=== PATIENT | male | born 1940 | race Caucasian/White ===

== ENCOUNTER 2019-08-19 16:13 | Inpatient (IN) | payer MEDICARE, MEDICAID ==
[2019-08-19 16:50] LABS: Bilirubin Negative (Negative); Blood, Urine Negative (Negative); Clarity Clear (Clear); Glucose, Urine (Dipstick) Normal (Negative); Leukocyte Negative Leu/uL (Negative); Nitrite Negative (Negative); Protein, Urine (Dipstick) Negative (Neg-Trace); Urobilinogen Normal mg/dL (Less than 2)
[2019-08-19] MEDS ORDERED: Cefepime 2 GM VIAL ONE ×3 (16:52→16:57)
[2019-08-19 17:00] LABS: #Lymphocytes 1.8 thou/uL (1.20-3.40); #Monocytes 0.9 thou/uL (0.11-0.59); %Basophils 0.2 % (0.0-1.0); %Eosinophils 0.2 % (0.0-10.0); %Lymphocytes 20.8 % (21.0-51.0); %Monocytes 10.6 % (0.0-10.0); %Neutrophils 68.2 % (42.0-75.0); Hemoglobin 16.1 g/dL (14.0-18.0); Mean Corpuscular HGB CONC 32.9 g/dL (32.0-36.0); Mean Corpuscular Hemoglobin 32.2 pg (27.0-31.0); Mean Corpuscular Volume 97.8 fL (78.0-98.0); Mean Platelet Volume 9.2 fL (7.4-10.4); Platelet Count 174 thou/uL (130-400); RBC Distribution Width 13.1 % (11.5-14.5); White Blood Cell (WBC) Count 8.8 thou/uL (4.8-10.8)
[2019-08-19 17:19] LABS: ALT (SGPT) 9 U/L (8-55); AST (SGOT) 14 U/L (5-34); Albumin 4.2 g/dL (3.4-4.8); Alkaline Phosphatase 77 U/L (40-110); Anion Gap 16 mmol/L (10-20); BUN (Urea Nitrogen) 17 mg/dL (8.4-25.7); Bilirubin, Total 0.5 mg/dL (0.2-1.2); Calc. Creatinine Clearance 0 mL/min (70-130); Carbon Dioxide 28 mmol/L (23-31); Chloride 100 mmol/L (98-107); Estimated GFR-MDRD 52; Glucose 142 mg/dL (83-110); Potassium 3.5 mmol/L (3.5-5.1); Protein, Total 7.2 g/dL (5.8-8.1); Sodium 140 mmol/L (136-145)
--- NOTE | 2019-08-19 17:27 | RAD ---
Chest one view HISTORY: Dyspnea. Fever. FINDINGS: No comparison. Cardiac silhouette is magnified and enlarged. Pulmonary vasculature is engor ged with mild patchy bibasilar infiltrates. Mediastinum is midline with aortic calcification. No lobar consolidation or evidence of pneumothorax. compliance monitor leads overlie the chest. IMPRESSION: Cardiomegaly with mild pulmonary vascular congestion. Consider CHF. Atherosclerosis.
[2019-08-19 17:43] LABS: CKMB 1.9 ng/mL (0-6.6)
[2019-08-19] MEDS ORDERED: methylPREDNISolone Sod Succ/PF 125 MG/2 ML VIAL ONE (17:52)
[2019-08-19 18:32] LABS: Analyzer IN Cardio ER; Base Excess (BEa) -0.4 mEq/L (-2.0 to +3.0); CO2 Tension 38.9 mmHg (35.0-45.0); Carboxyhemoglobin (COHb) 0.9 gm% (0.0-3.0); Hemoglobin (Hb) 15.2 g/dL (14.0-18.0); Potassium - ABG Lab 3.52 mmol/L (3.70-5.30); pH, Arterial 7.41 (7.35-7.45)
[2019-08-19 18:45] LABS: ALV-art Gradient 92.915 (0-20); O2 Tension (PaO2) 58.1 mmHg (> 70.0); Puncture Site LRA
[2019-08-19] MEDS ORDERED: Furosemide 40 MG/4 ML VIAL ONE (19:22)
[2019-08-19 21:14] LABS: Lactic Acid 2.8 mmol/L (0.5-2.2)
[2019-08-19] MEDS ORDERED: Bacteriostatic Water 30 ML VIAL FS PRN (23:40)
[2019-08-19] MEDS ORDERED: Sodium Chloride 0.9% (PF) 10 ML VIAL FS PRN (23:42)
[2019-08-19 23:52] VITALS: BMI 33.1
[2019-08-20] MEDS: Cefepime 1 GM in Sodium Chloride 0.9% 100 ML IVPB SCH ×3 (00:09→17:49)
[2019-08-20] MEDS: methylPREDNISolone Sod Succ 40 MG VIAL IVP SCH ×3 (00:18→13:13)
[2019-08-20 02:05] LABS: #Lymphocytes 0.4 thou/uL (1.20-3.40); #Monocytes 0.1 thou/uL (0.11-0.59); #Neutrophils 6.1 thou/uL (1.40-6.50); %Basophils 0.2 % (0.0-1.0); %Eosinophils 0.1 % (0.0-10.0); %Lymphocytes 6.6 % (21.0-51.0); %Monocytes 2.1 % (0.0-10.0); Hemoglobin 15.2 g/dL (14.0-18.0); Mean Corpuscular HGB CONC 33.2 g/dL (32.0-36.0); Mean Corpuscular Hemoglobin 32.6 pg (27.0-31.0); Mean Corpuscular Volume 98.1 fL (78.0-98.0); Mean Platelet Volume 9.5 fL (7.4-10.4); Platelet Count 171 thou/uL (130-400); RBC Distribution Width 13.2 % (11.5-14.5); Red Blood Cell (RBC) Count 4.66 mill/uL (4.70-6.10); White Blood Cell (WBC) Count 6.7 thou/uL (4.8-10.8)
[2019-08-20 02:27] LABS: Lactic Acid 2.8 mmol/L (0.5-2.2)
[2019-08-20 02:28] LABS: Troponin I 0.132 ng/mL (< 0.028)
[2019-08-20 02:32] LABS: ALT (SGPT) 11 U/L (8-55); AST (SGOT) 17 U/L (5-34); Albumin 3.8 g/dL (3.4-4.8); Alkaline Phosphatase 62 U/L (40-110); Anion Gap 16 mmol/L (10-20); BUN (Urea Nitrogen) 19 mg/dL (8.4-25.7); Bilirubin, Total 0.5 mg/dL (0.2-1.2); Calc. Creatinine Clearance 69 mL/min (70-130); Calcium 8.5 mg/dL (7.8-10.44); Carbon Dioxide 25 mmol/L (23-31); Chloride 101 mmol/L (98-107); Estimated GFR-MDRD 58; Glucose 221 mg/dL (83-110); Potassium 4.2 mmol/L (3.5-5.1); Protein, Total 6.8 g/dL (5.8-8.1); Sodium 138 mmol/L (136-145)
--- NOTE | 2019-08-20 05:07 | HP ---
CHIEF COMPLAINT: Shortness of breath and hypoxia. HISTORY OF PRESENT ILLNESS: Mr. Beard is a 79-year-old male with past medical history of aortic stenosis, cardiomyopathy, diastolic heart failure, COPD versus bronchitis, who uses nebulizer treatments every day and oxygen as well, has wheezing all the time, was complaining of some coughing and shortness of breath. The patient was in respiratory distress and hypoxic at the [facility] and also had fever. The patient also was getting confused. He did not have any chest pain, nausea, vomiting, or headache. So, EMS was called because of these symptoms. EMS found the patient with fever, also with wheezing, was given Tylenol and DuoNeb treatments. In the ER, the patient was evaluated and found to be in respiratory failure, also in atrial fibrillation with RVR. The patient was also found to have influenza A positive. So, the patient received a dose of Solu-Medrol, cefepime, Cardizem, and vancomycin. He did not get Tamiflu yet. He did not get DuoNebs also. The patient is also placed on BiPAP for respiratory distress. PAST MEDICAL HISTORY: 1. Hypertension. 2. Cardiomyopathy. 3. History of diastolic heart failure. 4. History of COPD versus bronchitis. 5. Aortic stenosis. 6. Dementia with behavioral disturbance. 7. Blindness, right eye. PAST SURGICAL HISTORY: Nothing significant. CURRENT MEDICATIONS: The patient is on, 1. DuoNebs q.i.d. 2. Lasix 40 mg daily. 3. Breo Ellipta 100/25 one inhaler daily. 4. KCl 10 mEq daily. 5. Depakote 125 mg three times daily. 6. Aricept 10 mg daily. 7. Melatonin 5 mg at bedtime. 8. Vitamin B12 daily. 9. Mucinex daily. ALLERGIES: NKDA. FAMILY HISTORY: Nothing contributory. SOCIAL HISTORY: He lives in the [facility]. No history of alcohol intake. REVIEW OF SYSTEMS: CARDIOVASCULAR: Has no chest pain. Has shortness of breath. RESPIRATORY: Has cough and fever. GASTROINTESTINAL: No nausea, vomiting, or abdominal symptoms. CENTRAL NERVOUS SYSTEM: No headache. No dizziness. PHYSICAL EXAMINATION: GENERAL: The patient is alert, awake, oriented x3. VITAL SIGNS: Temperature is 99.1, pulse 110, respirations 32, and blood pressure 120/60. HEENT: Head is normocephalic, atraumatic. Pupils are equal and reactive to light. Nasopharynx is pale and dry. NECK: Supple. No JVD. LUNGS: Expiratory wheeze present bilaterally. No crackles. HEART: S1 and S2 regular. ABDOMEN: Soft. No distention. No tenderness. No organomegaly. Bowel sounds present. RECTAL: Deferred. CENTRAL NERVOUS SYSTEM: No focal deficit. EXTREMITIES: 1+ edema. LABORATORY DATA: CBC shows WBC 8.8, hemoglobin 16, hematocrit 48, and platelets 174. Metabolic panel; sodium 140, potassium 3.5, chloride 100, CO2 of 28, urea nitrogen 17, creatinine 1.3, and glucose 142. Lactic acid 2.7. Troponin I 0.08. BNP is not done. ABG showed pH 7.4, pCO2 of 38, PO2 of 58, saturation 90%. Urinalysis negative. IMAGING DATA: Chest x-ray shows pulmonary vascular congestion. EKG shows atrial fibrillation with rapid ventricular rate with heart rate of 105. ASSESSMENT: 1. Acute respiratory failure. 2. Diastolic heart failure. 3. Asthmatic bronchitis versus chronic obstructive pulmonary disease. 4. Influenza A. 5. Atrial fibrillation with rapid ventricular rate. 6. History of cardiomyopathy. 7. Hypertension. 8. Dementia with behavioral problems. PLAN: 1. Admit to IMCU. 2. Condition; critical. Prognosis; guarded. 3. Diet; cardiac. 4. Hep-Lock. 5. DuoNebs 1 unit q.i.d. 6. Solu-Medrol 20 mg IVP q.6 hours and Lasix 40 mg IVP q.a.m. 7. KCl 20 mEq daily. 8. Cefepime 1 g IV piggyback q.8 hours, Tamiflu 75 mg p.o. b.i.d., Protonix 40 mg IV piggyback daily, and Lovenox 40 mg subcu daily. 9. We will obtain echocardiogram. 10. Cardiology consult. 11. CBC, CMP, and lactic acid level in the morning. Troponin I q.6 hours x2. We will continue [facility] medications. We will maintain BiPAP. Job ID: [id number]
[2019-08-20] MEDS: Mometasone/Formoterol 120 PUFF INHALER INH SCH ×3 (08:29→19:12)
[2019-08-20] MEDS ORDERED: FLU VACC TS2019-20(65YR UP)/PF 180 MCG/0.5 ML SYRINGE IM ONE (09:00)
[2019-08-20] MEDS ORDERED: Prevnar 13-Val Conj/PF 0.5 ML SYRINGE IM ONE (09:00)
[2019-08-20] MEDS: Potassium Chloride 20 MEQ TAB PO SCH (10:15)
[2019-08-20] MEDS: Enoxaparin Sodium 40 MG/0.4 ML SYRINGE SC SCH (10:16)
[2019-08-20] MEDS: Oseltamivir 75 MG CAP PO SCH ×2 (10:17→22:11)
[2019-08-20] MEDS: Furosemide 40 MG/4 ML VIAL SLOW IVP SCH (10:17)
[2019-08-20] MEDS: guaiFENesin ER 600 MG TAB PO SCH ×2 (10:17→22:11)
[2019-08-20] MEDS: Pantoprazole 40 MG VIAL IVP SCH (10:18)
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
[2019-08-20] MEDS ORDERED: Divalproex Sodium 125 mg Sprinkle Capsule PO SCH (19:45)
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
[2019-08-21] MEDS: Cefepime 1 GM in Sodium Chloride 0.9% 100 ML IVPB SCH ×3 (02:17→19:35)
[2019-08-21] MEDS ORDERED: Acetaminophen 325 MG TAB PO PRN (05:55)
[2019-08-21] MEDS: Mometasone/Formoterol 120 PUFF INHALER INH SCH ×2 (07:59→18:46)
[2019-08-21] MEDS: Potassium Chloride 20 MEQ TAB PO SCH (09:40)
[2019-08-21] MEDS: Oseltamivir 75 MG CAP PO SCH ×2 (09:40→20:44)
[2019-08-21] MEDS: Enoxaparin Sodium 40 MG/0.4 ML SYRINGE SC SCH (09:40)
[2019-08-21] MEDS: guaiFENesin ER 600 MG TAB PO SCH ×2 (09:40→20:44)
[2019-08-21] MEDS: predniSONE 20 MG TAB PO SCH (09:40)
[2019-08-21] MEDS: Furosemide 40 MG/4 ML VIAL SLOW IVP SCH (09:40)
[2019-08-21] MEDS: Pantoprazole 40 MG VIAL IVP SCH (09:41)
[2019-08-21] MEDS ORDERED: Artificial Tears 18 DROP/0.9 ML EA EYE PRN (11:09)
[2019-08-21] MEDS ORDERED: Ketotifen Fumarate 0.025% Ophth Soln 5 ml Bottle EA EYE PRN (11:12)
[2019-08-21] MEDS: Divalproex Sodium 125 mg Sprinkle Capsule PO SCH ×2 (13:20→20:44)
--- NOTE | 2019-08-21 16:19 | PRG ---
DATE OF SERVICE: 08/21/2019 SERVICE: Pulmonary Medicine. INTERVAL HISTORY: The patient is doing outstanding from respiratory standpoint. Breathing comfortably. No complaints of chest discomfort, fevers, cough, nausea, vomiting, or diarrhea. Otherwise, he indicates he is breathing comfortably and has no chest discomfort. He can tell he is in the hospital today. His mentation is cleared significantly. He is no longer being inappropriate with female staff members. PHYSICAL EXAMINATION: VITAL SIGNS: Afebrile currently with a T-max of 100.7. Pulse 87, blood pressure 174/106, respirations 28, and saturation 94%, currently on room air. GENERAL: The patient is awake and alert, in no apparent distress. LUNGS: Wonderful air entry with no prolonged expiratory phase or wheezing present. HEART: Normal rate. Regular. ABDOMEN: Soft, nontender, and nondistended. Bowel sounds are positive. MUSCULOSKELETAL: No cyanosis or clubbing. There is trace pitting in the bilateral lower extremities. NEUROLOGIC: Grossly nonfocal. DISCUSSION AND PLAN: Echocardiogram demonstrates normal ejection fraction with a mildly dilated left atrium, moderate mitral regurgitation, and moderate to severe aortic stenosis. ASSESSMENT: 1. Acute on chronic hypoxic respiratory failure. 2. Chronic obstructive pulmonary disease with acute exacerbation secondary to influenza A. 3. Acute on chronic diastolic heart failure. 4. Mitral regurgitation, moderate with aortic stenosis, severe. 5. Dementia. DISCUSSION AND PLAN: The patient has returned to normal sinus rhythm. He can be transitioned out of the IMCU. At this point, he has no further requirements for inpatient Pulmonary or Critical Care opinion. Steroids and Tamiflu can be interrupted after total duration of 5 days. If the patient has significant deterioration in respiratory status, please give me a phone call. Job ID: [id number]
[2019-08-21] MEDS: Melatonin 3 MG TAB PO SCH (20:44)
[2019-08-21] MEDS ORDERED: guaiFENesin ER 600 MG TAB PO SCH (21:00)
[2019-08-22] MEDS: Cefepime 1 GM in Sodium Chloride 0.9% 100 ML IVPB SCH ×3 (02:10→16:12)
[2019-08-22 08:27] LABS: Phosphorus 2.4 mg/dL (2.3-4.7)
[2019-08-22 08:29] LABS: Anion Gap 9 mmol/L (10-20); BUN (Urea Nitrogen) 28 mg/dL (8.4-25.7); Calc. Creatinine Clearance 95 mL/min (70-130); Calcium 8.6 mg/dL (7.8-10.44); Carbon Dioxide 31 mmol/L (23-31); Chloride 101 mmol/L (98-107); Estimated GFR-MDRD 84; Glucose 126 mg/dL (83-110); Magnesium 2.1 mg/dL (1.6-2.6); Potassium 4.3 mmol/L (3.5-5.1); Sodium 137 mmol/L (136-145)
[2019-08-22] MEDS: guaiFENesin ER 600 MG TAB PO SCH ×2 (08:51→21:03)
[2019-08-22] MEDS: Furosemide 40 MG/4 ML VIAL SLOW IVP SCH (08:51)
[2019-08-22] MEDS: predniSONE 20 MG TAB PO SCH (08:52)
[2019-08-22] MEDS: Cyanocobalamin (Vitamin B-12) 1,000 MCG TAB PO SCH (08:52)
[2019-08-22] MEDS: Aspirin Chewable 81 MG TAB PO SCH (08:52)
[2019-08-22] MEDS: Donepezil HCl 10 MG TAB PO SCH (08:52)
[2019-08-22] MEDS: Divalproex Sodium 125 mg Sprinkle Capsule PO SCH ×3 (08:52→21:03)
[2019-08-22] MEDS: Oseltamivir 75 MG CAP PO SCH ×2 (08:52→21:03)
[2019-08-22] MEDS: Potassium Chloride 20 MEQ TAB PO SCH (08:53)
[2019-08-22] MEDS: Mometasone/Formoterol 120 PUFF INHALER INH SCH ×2 (08:57→19:22)
[2019-08-22] MEDS: Enoxaparin Sodium 40 MG/0.4 ML SYRINGE SC SCH (10:42)
[2019-08-22] MEDS: Acetaminophen 500 MG TAB PO PRN (16:11)
[2019-08-22] MEDS: Melatonin 3 MG TAB PO SCH (21:03)
[2019-08-23] MEDS: Cefepime 1 GM in Sodium Chloride 0.9% 100 ML IVPB SCH ×3 (00:12→16:09)
[2019-08-23] MEDS: Mometasone/Formoterol 120 PUFF INHALER INH SCH ×2 (08:38→20:28)
[2019-08-23] MEDS: Enoxaparin Sodium 40 MG/0.4 ML SYRINGE SC SCH (10:05)
[2019-08-23] MEDS: Potassium Chloride 20 MEQ TAB PO SCH (10:06)
[2019-08-23] MEDS: Aspirin Chewable 81 MG TAB PO SCH (10:06)
[2019-08-23] MEDS: Donepezil HCl 10 MG TAB PO SCH (10:06)
[2019-08-23] MEDS: predniSONE 20 MG TAB PO SCH (10:07)
[2019-08-23] MEDS: Divalproex Sodium 125 mg Sprinkle Capsule PO SCH ×3 (10:07→20:57)
[2019-08-23] MEDS: Oseltamivir 75 MG CAP PO SCH ×2 (10:07→20:56)
[2019-08-23] MEDS: guaiFENesin ER 600 MG TAB PO SCH ×2 (10:07→20:56)
[2019-08-23] MEDS: Cyanocobalamin (Vitamin B-12) 1,000 MCG TAB PO SCH (10:07)
[2019-08-23] MEDS: Furosemide 40 MG TAB PO SCH (10:08)
[2019-08-23 12:31] LABS: Phosphorus 2.4 mg/dL (2.3-4.7)
[2019-08-23 12:33] LABS: Anion Gap 11 mmol/L (10-20); BUN (Urea Nitrogen) 25 mg/dL (8.4-25.7); Calc. Creatinine Clearance 88 mL/min (70-130); Carbon Dioxide 34 mmol/L (23-31); Chloride 97 mmol/L (98-107); Estimated GFR-MDRD 76; Glucose 123 mg/dL (83-110); Magnesium 2.1 mg/dL (1.6-2.6); Potassium 4.2 mmol/L (3.5-5.1); Sodium 138 mmol/L (136-145)
--- NOTE | 2019-08-23 14:30 | PQF ---
BARBARA SNYDER VENKAT R MD [id number] [facility]-288 [id number] CLINICAL DOCUMENTATION IMPROVEMENT CLARIFICATION FORM: ICD-10 Updated PLEASE DO AN ADDENDUM TO THE PROGRESS NOTE WITH ANY DOCUMENTATION UPDATES OR ADDITIONS AND CARRY THROUGH TO DC SUMMARY. THANK YOU. DATE: 08/23/2019 ATTN: DR. Kendra HERNÁNDEZ Please exercise your independent, professional judgment in responding to the clarification form. Clinical indicators are provided on the bottom of this form for your review. Please check appropriate box(es): [ ] Sepsis [ ] Severe sepsis with acute organ dysfunction of: (Examples: respiratory failure, encephalopathy, acute kidney failure, other) [ ] Septic Shock [ y] Other diagnosis influenza A and copd exaserbation [ ] Unable to determine In addition, please specify: Present on Admission (POA): [ y] Yes [ ] No [ ] Unable to determine For continuity of documentation, please document condition throughout progress notes and discharge summary. Thank You. CLINICAL INDICATORS - SIGNS / SYMPTOMS / LABS / RESULTS AND LOCATION IN MR ED REPORT 08/19 : PT PRESENTED FROM RESIDENTIAL WITH FEVER OF 102.6, RESP 26- 31, PULSE 113-129, REQUIRING BIPAP TO MAINTAIN O2 SAT AT 95-96%. PT C/O SOB, SLIGHT ALTERED MENTAL STATUS AND FEVER. ED PHYSICIAN FINAL DX: HYPOXIC RESP FAILURE, AFIB W RVR, CAP, INFLUENZA. 08/19 LACTIC ACID 2.7 > 2.8 08/20 LACTIC ACID 2.8 08/19 H& P(THADAREDDY) EMS FOUND THE PT WITH FEVER, ALSO WHEEZING, THE PT WAS FOUND TO HAVE INFLUENZA A POSITIVE. ASSESSMENT: INFLUENZA A RISK: ADVANCED AGE ( 79), RESIDENTIAL RESIDENT, INFLUENZA A (H&P/THADAREDDY) 08/19 TREATMENTS: MAXIPIME IV (08/20-PRESENT) SUPPLEMENTAL OXYGEN ( 08/20- PRESENT) SERIAL LABS ( 08/20- PRESENT) THANK YOU! MEGAN (This form is maintained as a part of the permanent medical record) 2014 [employer], [employer]. All Rights Reserved [email or web address] [email or web address] [phone] [facility]ILITY[facility]assy
[2019-08-23] MEDS: Acetaminophen 500 MG TAB PO PRN (19:21)
[2019-08-23] MEDS: Melatonin 3 MG TAB PO SCH (20:56)
[2019-08-24] MEDS: Cefepime 1 GM in Sodium Chloride 0.9% 100 ML IVPB SCH ×2 (01:17→09:31)
[2019-08-24 04:59] LABS: Phosphorus 2.4 mg/dL (2.3-4.7)
[2019-08-24 05:00] LABS: Anion Gap 11 mmol/L (10-20); BUN (Urea Nitrogen) 23 mg/dL (8.4-25.7); Calc. Creatinine Clearance 104 mL/min (70-130); Calcium 8.6 mg/dL (7.8-10.44); Carbon Dioxide 34 mmol/L (23-31); Chloride 96 mmol/L (98-107); Estimated GFR-MDRD Greater than 90; Glucose 125 mg/dL (83-110); Magnesium 1.9 mg/dL (1.6-2.6); Potassium 4.2 mmol/L (3.5-5.1); Sodium 137 mmol/L (136-145)
[2019-08-24] MEDS: Mometasone/Formoterol 120 PUFF INHALER INH SCH (08:38)
[2019-08-24] MEDS: Enoxaparin Sodium 40 MG/0.4 ML SYRINGE SC SCH (09:31)
[2019-08-24] MEDS: Donepezil HCl 10 MG TAB PO SCH (09:32)
[2019-08-24] MEDS: predniSONE 20 MG TAB PO SCH (09:32)
[2019-08-24] MEDS: Furosemide 40 MG TAB PO SCH (09:32)
[2019-08-24] MEDS: Potassium Chloride 20 MEQ TAB PO SCH (09:32)
[2019-08-24] MEDS: Divalproex Sodium 125 mg Sprinkle Capsule PO SCH ×2 (09:32→16:01)
[2019-08-24] MEDS: Oseltamivir 75 MG CAP PO SCH (09:32)
[2019-08-24] MEDS: Aspirin Chewable 81 MG TAB PO SCH (09:32)
[2019-08-24] MEDS: Cyanocobalamin (Vitamin B-12) 1,000 MCG TAB PO SCH (09:32)
[2019-08-24] MEDS: guaiFENesin ER 600 MG TAB PO SCH (09:32)
[2019-08-24 16:14] VITALS: BP 139/75; TEMP 98.4
--- NOTE | 2019-08-26 08:30 | DIS ---
DATE OF ADMISSION: 08/19/2019 DATE OF DISCHARGE: 08/24/2019 ADMITTING DIAGNOSES: 1. Acute respiratory failure. 2. Diastolic heart failure. 3. Influenza A infection. 4. Chronic obstructive pulmonary disease acute exacerbation. 5. History of cardiomyopathy. 6. Hypertension. 7. Dementia with behavioral problems. FINAL DIAGNOSES: 1. Acute respiratory failure. 2. Influenza A infection. 3. Chronic obstructive pulmonary disease with acute exacerbation, improved. 4. Diastolic heart failure. 5. Cardiomyopathy by history. 6. Hypertension. 7. Dementia with behavioral problems. BRIEF SUMMARY OF HOSPITAL COURSE: Mr. Beard is a 79-year-old male, admitted with respiratory distress, fever. The patient was found to be influenza A positive and he was in respiratory failure and also chest wheezing, with history of COPD exacerbation and also history of congestive heart failure. The patient was on EPAP and BiPAP, monitored in IMCU. The patient was seen by Pulmonary, Dr. Montaño, suggested to continue with BiPAP as well as neb treatments and Solu-Medrol and Tamiflu. The patient was also seen by Cardiology in view of his heart failure. The patient had an echo done also which showed [id number] aortic stenosis. Dr. Anderson suggested gentle diuresis and they felt he is not a candidate for any interventional procedure regarding aortic stenosis, his oxygen saturation improved. He was taken off BiPAP, kept on nasal cannula. There was an episode of agitation secondary to dementia and continuous chest wheezing, was kept on neb treatments, Solu-Medrol, and Lasix and transferred to telemetry where he was closely monitored. His shortness of breath gradually improved. Chest wheezing also improved. In view of improvement, the patient is being discharged back to [facility]. At the time of discharge, he was stable, vital signs stable, lungs clear, abdomen soft and nontender and bowel sounds present. DISCHARGE MEDICATIONS: Include 1. Vitamin B12 1 tablet daily. 2. Prednisone in tapering doses. 3. KCl 10 mEq daily. 4. Mucinex 600 b.i.d. 5. Melatonin daily at bedtime day. 6. DuoNeb q.4 hours. 7. Aricept 10 mg daily. 8. Aspirin 81 mg daily. 9. colace 100 mg daily 10. Lasix 40 mg daily. 11. Depakote 125 t.i.d. 12. Breo Ellipta one puff daily. 13. Augmentin b.i.d. for a week. 14. Tylenol p.r.n. The patient will complete his Tamiflu dose. Job ID: [id number] MTDD
--- NOTE | 2019-08-27 08:56 | PQF ---
BARBARA SNYDER VENKAT R MD [id number] [facility]-288 [id number] CLINICAL DOCUMENTATION CLARIFICATION FORM: POST DISCHARGE Addendum to original discharge summary date: ____ Late entry note date: __ DATE: 08/27/2019 ATTN:ELVIRA HERNÁNDEZ MD Please exercise your independent, professional judgment in responding to the clarification form. Clinical indicators are provided on the bottom of this form for your review Please check appropriate box(s): Diagnosis Occasioning theadmission : [ y ] Acute Respiratory Failure [ y ] Influenza A infection [ ] Acute on chronic diastolic heart failure [ ] Other diagnosis [ ] Unable to determine For continuity of documentation, please document condition throughout progress notes and discharge summary. Thank You. CLINICAL INDICATORS - SIGNS / SYMPTOMS / LABS - Hypoxic respiratory failure- ED report, 08/19, Afshin Denson MD - Influenza positive with infiltrates-ED report, 08/19, Afshin Denson MD - respiratory distress and hypoxic, SOB and Hypoxia- H&P, 08/19, ELVIRA HERNÁNDEZ MD - Chest X-ray shows pulmonary vascular congestion-H&P, 08/19, ELVIRA HERNÁNDEZ MD - BNP: 215.0H- Laboratory, 08/20 RISK FACTORS - COPD exacerbation secondary to influenza A- Consultation-08/21, Justin Zuñiga MD - Acute respiratory failure-DS, 08/24, ELVIRA HERNÁNDEZ MD - Diastolic heart failure- DS, 08/24, ELVIRA HERNÁNDEZ MD TREATMENTS: - Furosemide.IV- AUG, 08/19 - Vancomycin.IV- AUG, 08/19 - BiPAP - H&P, 08/19, ELVIRA HERNÁNDEZ MD - DuoNeb- H&P, 08/19, ELVIRA HERNÁNDEZ MD (This form is maintained as a part of the permanent medical record) 2014 [employer], [place]. All Rights Reserved [employer] ViewerJaime [email or web address] HARESH
== END 2019-08-24 16:14 | DRG 193 ==
LOC: ERS 16:13 → ERHOLD 19:29 → IMCU/EMU 23:37 → 2NO 08-21 19:06
PROVIDERS: ADMIT Internal Medicine; ATTEND Internal Medicine
DX: J10.1 Influenza due to other identified influenza virus with other respiratory manifestations (principal); J96.21 Acute and chronic respiratory failure with hypoxia; G93.41 Metabolic encephalopathy; I50.33 Acute on chronic diastolic (congestive) heart failure; J44.1 Chronic obstructive pulmonary disease with (acute) exacerbation; F03.91 Unspecified dementia, unspecified severity, with behavioral disturbance; I42.9 Cardiomyopathy, unspecified; I11.0 Hypertensive heart disease with heart failure; H54.61 Unqualified visual loss, right eye, normal vision left eye; G47.00 Insomnia, unspecified; R45.1 Restlessness and agitation; I48.91 Unspecified atrial fibrillation; I35.0 Nonrheumatic aortic (valve) stenosis; Z99.81 Dependence on supplemental oxygen
CPT/HCPCS: 36415; 51701; 71045; 80048; 80053; 81003; 82553; 82805; 83605; 83735; 83880; 84100; 84484; 85025; 87040; 87804; 90471; 90670; 93005; 93306; 94640; 94660; 96361; 96365; 96367; 96375; 99292; C9113; G0009; J0692; J1650; J1940; J2920; J2930; J3370; J3490; J7512; J7620

== ENCOUNTER 2020-05-07 19:02 | Inpatient (IN) | payer MEDICARE, MEDICAID ==
[~2020-05-07 19:02] MED LIST: Iopamidol-370 76% 500 ML 1 ML ONE
[2020-05-07] MEDS ORDERED: Cefepime 2 GM VIAL ONE (19:31)
[2020-05-07] MEDS ORDERED: methylPREDNISolone Sod Succ/PF 125 MG/2 ML VIAL ONE (19:31)
[2020-05-07] MEDS ORDERED: Albuterol 200 PUFF (6.7GM INHALER) ONE (19:37)
[2020-05-07 19:59] LABS: #Basophils 0.1 thou/uL (0.0-0.2); #Eosinphils 0.2 thou/uL (0.0-0.7); #Lymphocytes 2.4 thou/uL (1.20-3.40); #Monocytes 0.6 thou/uL (0.11-0.59); #Neutrophils 4.3 thou/uL (1.40-6.50); %Basophils 0.8 % (0.0-1.0); %Eosinophils 2.6 % (0.0-10.0); %Lymphocytes 32.2 % (21.0-51.0); %Monocytes 7.8 % (0.0-10.0); %Neutrophils 56.7 % (42.0-75.0); Hemoglobin 15.9 g/dL (14.0-18.0); Mean Corpuscular HGB CONC 32.4 g/dL (32.0-36.0); Mean Corpuscular Hemoglobin 31.8 pg (27.0-31.0); Mean Corpuscular Volume 98.3 fL (78.0-98.0); Mean Platelet Volume 8.8 fL (7.4-10.4); Platelet Count 171 thou/uL (130-400); RBC Distribution Width 13.6 % (11.5-14.5); Red Blood Cell (RBC) Count 4.99 mill/uL (4.70-6.10); White Blood Cell (WBC) Count 7.6 thou/uL (4.8-10.8)
[2020-05-07 20:20] LABS: ALT (SGPT) Less than 7 U/L (8-55); AST (SGOT) 13 U/L (5-34); Albumin 3.8 g/dL (3.4-4.8); Alkaline Phosphatase 78 U/L (40-110); Anion Gap 12 mmol/L (10-20); BUN (Urea Nitrogen) 22 mg/dL (8.4-25.7); Bilirubin, Total 0.5 mg/dL (0.2-1.2); Calc. Creatinine Clearance 0 mL/min (70-130); Calcium 8.7 mg/dL (7.8-10.44); Carbon Dioxide 34 mmol/L (23-31); Chloride 99 mmol/L (98-107); Estimated GFR-MDRD 58; Globulin 2.7 g/dL (2.4-3.5); Glucose 130 mg/dL (83-110); Lipase 14 U/L (8-78); Magnesium 1.9 mg/dL (1.6-2.6); Potassium 4.1 mmol/L (3.5-5.1); Protein, Total 6.5 g/dL (5.8-8.1); Sodium 141 mmol/L (136-145)
--- NOTE | 2020-05-07 20:33 | RAD ---
Chest one view HISTORY: Dyspnea. COMPARISON: 08/19/2019. FINDINGS: Cardiac silhouette is magnified and enlarged. Pulmonary vasculature slightly engorged with mild patchy bibasilar infiltrates similar in appearance to the prior study. Mediastinum is midline. No lobar consolidation or evidence of pneumothorax. IMPRESSION : Cardiomegaly, stable. Appearance of mild chronic CHF.
[2020-05-07] MEDS ORDERED: Furosemide 20 MG/2 ML VIAL ONE (21:03)
[2020-05-07] MEDS ORDERED: Furosemide 40 MG/4 ML VIAL ONE (21:03)
[2020-05-07 21:05] LABS: Bilirubin Negative (Negative); Blood, Urine Negative (Negative); Clarity Clear (Clear); Glucose, Urine (Dipstick) Normal (Negative); Ketone, Urine Negative (Negative); Leukocyte Negative Leu/uL (Negative); Nitrite Negative (Negative); Protein, Urine (Dipstick) 20 mg/dL (Neg-Trace); Specific Gravity, Urine 1.026 (1.002-1.036); pH, Urine 7.5 (5.0-9.0)
--- NOTE | 2020-05-07 21:50 | CT ---
CT arteriogram chest with IV contrast and 3-D imaging HISTORY: Dyspnea. Chest pain. FINDINGS: There is good contrast opacification pulmonary arteries and thoracic aorta. Nonenlarged, no nspecific lymph nodes throughout the mediastinum. Prominent calcification of the coronary arteries. Within the posterior aspect of the right lower lobe is a focal masslike area of soft tissue nodular d ensity measuring up to 2.2 cm x 1.8 cm x 1.5 cm greatest diameters. It is just beyond an area of central atelectasis involving the anterior basilar segment of the right lower lobe. Additional tiny n odule is present at the right posterior lung base. No lobar consolidation or evidence of pneumothorax. Mild diffuse groundglass opacity involves the right upper lobe and left lower lobe without focal cons olidation. Cause is not evident. IMPRESSION : No evidence of pulmonary embolus. Right lower lobe nodule 2.2 cm. Chronic appearing scarring/abnormality at the right lower lobe also h as the appearance of chronic inflammation. Please consider pulmonary medicine evaluation for potential bronchoscopy and PET. Atherosclerosis.
[2020-05-07 23:48] LABS: Troponin I 0.024 ng/mL (< 0.028)
--- NOTE | 2020-05-07 23:55 | PDOC.HHP ---
Hospitalist HPI - History of Present Illness History of Present Illness: ADMISSION DATE: 05/07/2020 TIME OF ASSESSMENT: 2315 PRIMARY CARE PHYSICIAN: None at this time, previous patient of Dr. Mercado CHIEF COMPLAINT: Shortness of breath HPI: The patient is a 79-year-old male past medical history significant for cardiomyopathy and CHF who is a resident at [facility]. Nursing staff at the halfway called EMS stating that the patient's O2 sats were in the 80s. Upon arrival the patient sats were in the mid 90s and he has some lower extremity edema. He was wheezy upon arrival per EMS. Upon interview patient states he wants to go back home and does not want to be admitted. Discussed with patient his clinical findings and plan of care and he was able to calm down. He denies any fevers, chills, nausea, vomiting, diarrhea. He does acknowledge that he has some increased swelling to his right leg. Patient states he is normally not oxygen dependent. ED COURSE: Today in the ER they completed a chest x-ray, chest and thorax CTA, lab work, and Covid swab he was administered furosemide 60 mg IV, Rocephin 2 g IV piggyback, methylprednisone 125 mg IV, Proventil HFA 2 inhalations. VITAL SIGNS TueMay 07, 2020 19:18 DEBBIE Yu Jordan BP: 155/86, MAP: 109, Pulse: 79, Resp: 24, Temp: 98.5 (Oral), Pain: 0, O2 sat: 92 on (Room Air), Time: 05/07/2020 19:18. VITAL SIGNS TueMay 07, 2020 19:56 DEBBIE Yu Jordan BP: 150/86, MAP: 107, Pulse: 82, Resp: 29, Pain: 0, O2 sat: 94 on (2L Oxygen), Time: 05/07/2020 19:56. VITAL SIGNS TueMay 07, 2020 20:44 DEBBIE Yu Jordan BP: 138/86, MAP: 93, Pulse: 76, Resp: 27, Pain: 0, O2 sat: 96 on (3L Oxygen), Time: 05/07/2020 20:44. PAST MEDICAL HISTORY: CHF, aortic valve stenosis, dementia, blindness right eye, COPD, insomnia, cardiomyopathy PAST SURGICAL HISTORY: Unknown SOCIAL HISTORY: Patient lives at [facility]. He denies alcohol, drugs, smoking. FAMILY HISTORY: Unknown due to patient's mentation ALLERGIES: No known drug allergies CURRENT MEDICATIONS: Depakote 125 mg 3 times a day Furosemide 40 mg daily Melatonin 5 mg once at night Vitamin B12 1000 mcg Donepezil 10 mg daily Children's aspirin 81 mg daily Prozac 10 mg daily Risperidone 0.5 mg daily Namenda 10 mg daily - Exam General Appearance: NAD, awake alert Neck: supple Heart: RRR, no murmur, no gallops, no rubs Respiratory: CTAB, no wheezes, no rales, no ronchi Gastrointestinal: soft, non-tender, non-distended, normal bowel sounds Extremities: 2+ LE edema (Right greater than left) Psychiatric: oriented to person Hospitalist Results - Labs Result Diagrams: 05/13/20 03:58 05/11/20 08:58 Lab results: WBC 7.6 thou/uL (4.8-10.8) 05/07/20 19:46 Hgb 15.9 g/dL (14.0-18.0) 05/07/20 19:46 Hct 49.1 % (42.0-52.0) 05/07/20 19:46 MCV 98.3 fL (78.0-98.0) H 05/07/20 19:46 Plt Count 171 thou/uL (130-400) 05/07/20 19:46 Neutrophils % 56.7 % (42.0-75.0) 05/07/20 19:46 Sodium 141 mmol/L (136-145) 05/07/20 19:46 Potassium 4.1 mmol/L (3.5-5.1) 05/07/20 19:46 Chloride 99 mmol/L (98-107) 05/07/20 19:46 Carbon Dioxide 34 mmol/L (23-31) H 05/07/20 19:46 BUN 22 mg/dL (8.4-25.7) 05/07/20 19:46 Creatinine 1.20 mg/dL (0.7-1.3) 05/07/20 19:46 Glucose 130 mg/dL (83-110) H 05/07/20 19:46 Lactic Acid 1.2 mmol/L (0.5-2.2) 05/07/20 19:46 Calcium 8.7 mg/dL (7.8-10.44) 05/07/20 19:46 Total Bilirubin 0.5 mg/dL (0.2-1.2) 05/07/20 19:46 AST 13 U/L (5-34) 05/07/20 19:46 ALT Less than 7 U/L (8-55) L 05/07/20 19:46 Alkaline Phosphatase 78 U/L (40-110) 05/07/20 19:46 Troponin I 0.024 ng/mL (< 0.028) 05/07/20 23:15 B-Natriuretic Peptide 174.8 pg/mL (0-100) H 05/07/20 19:46 Serum Total Protein 6.5 g/dL (5.8-8.1) 05/07/20 19:46 Albumin 3.8 g/dL (3.4-4.8) 05/07/20 19:46 Lipase 14 U/L (8-78) 05/07/20 19:46 Urine Ketones Negative mg/dL (Negative) 05/07/20 20:30 Urine Blood Negative (Negative) 05/07/20 20:30 Urine Nitrite Negative (Negative) 05/07/20 20:30 Ur Leukocyte Esterase Negative Zakia/uL (Negative) 05/07/20 20:30 - EKG Interpretation EKG: Sinus rhythm with PACs 78 bpm - Radiology Interpretation CT scan - chest Status: report reviewed by me Additional Comment: HISTORY: Dyspnea. Chest pain. FINDINGS: There is good contrast opacification pulmonary arteries and thoracic aorta. Nonenlarged, nonspecific lymph nodes throughout the mediastinum. Prominent calcification of the coronary arteries. Within the posterior aspect of the right lower lobe is a focal masslike area of soft tissue nodular density measuring up to 2.2 cm x 1.8 cm x 1.5 cm greatest diameters. It is just beyond an area of central atelectasis involving the anterior basilar segment of the right lower lobe. Additional tiny nodule is present at the right posterior lung base. No lobar consolidation or evidence of pneumothorax. Mild diffuse groundglass opacity involves the right upper lobe and left lower lobe without focal consolidation. Cause is not evident. IMPRESSION : No evidence of pulmonary embolus. Right lower lobe nodule 2.2 cm. Chronic appearing scarring/abnormality at the right lower lobe also has the appearance of chronic inflammation. Please consider pulmonary medicine evaluation for potential bronchoscopy and PET. Atherosclerosis. Chest x-ray Status: image reviewed by me, report reviewed by me Additional Comment: FINDINGS: Cardiac silhouette is magnified and enlarged. Pulmonary vasculature slightly engorged with mild patchy bibasilar infiltrates similar in appearance to the prior study. Mediastinum is midline. No lobar consolidation or evidence of pneumothorax. IMPRESSION : Cardiomegaly, stable. Appearance of mild chronic CHF. Hospitalist H&P A/P - Plan Plan: Acute on chronic hypoxic respiratory failure IV steroids with IV antibiotics Continue monitor O2 saturation and vital signs Covid swab negative Awaiting blood and urine culture results Chronic obstructive pulmonary disease with acute exacerbation Nebulizer treatments available IV steroids to continue Acute on chronic diastolic heart failure Previous echo in July of this year showed EF 50 to 55% Continue IV Lasix Daily weights Strict intake and outputs Hypertension Monitor vital signs every 4 hours Restart home medications once reconciled Dementia with history of behavioral disturbances Restart home medications once reconciled CODE STATUS: Full Patient unable to name surrogate decision-maker Patient discussed with Dr. Catalan
[2020-05-08] MEDS ORDERED: Dextrose 5% in Water 1,000 ML IV PRN (01:49)
[2020-05-08] MEDS ORDERED: Dextrose 50% Abboject 50 ML SYRINGE SLOW IVP PRN (01:49)
[2020-05-08] MEDS ORDERED: Acetaminophen 325 MG TAB PO PRN (01:49)
[2020-05-08 01:55] LABS: SARS-CoV-2 NAA Rapid Test Not Detected (NotDetected)
[2020-05-08] MEDS ORDERED: HumaLOG 300 UNITS/3 ML VIAL SC PRN ×2 (02:06)
[2020-05-08 02:22] LABS: Troponin I 0.016 ng/mL (< 0.028)
[2020-05-08] MEDS ORDERED: cefTRIAXone\\ROCEPHIN 1 GM in Sodium Chloride 0.9% 100 ML IVPB SCH (02:30)
[2020-05-08] MEDS ORDERED: Azithromycin 500 MG in Sodium Chloride 0.9% 250 ML 250 ML IVPB SCH (03:00)
[2020-05-08 05:18] VITALS: BMI 34.7
[2020-05-08] MEDS: cefTRIAXone\\ROCEPHIN 1 GM in Sodium Chloride 0.9% 100 ML IVPB SCH (05:35)
[2020-05-08] MEDS: Furosemide 40 MG/4 ML VIAL SLOW IVP SCH ×2 (05:36→15:12)
[2020-05-08] MEDS: methylPREDNISolone Sod Succ 40 MG VIAL IVP SCH ×3 (05:36→20:10)
[2020-05-08 05:49] LABS: #Lymphocytes 1.5 thou/uL (1.20-3.40); #Monocytes 0.1 thou/uL (0.11-0.59); #Neutrophils 5.1 thou/uL (1.40-6.50); %Basophils 0.2 % (0.0-1.0); %Eosinophils 0.1 % (0.0-10.0); %Lymphocytes 22.3 % (21.0-51.0); %Monocytes 0.9 % (0.0-10.0); %Neutrophils 76.5 % (42.0-75.0); Hemoglobin 17.5 g/dL (14.0-18.0); Mean Corpuscular HGB CONC 31.6 g/dL (32.0-36.0); Mean Corpuscular Hemoglobin 31.1 pg (27.0-31.0); Mean Corpuscular Volume 98.2 fL (78.0-98.0); Platelet Count 177 thou/uL (130-400); RBC Distribution Width 13.8 % (11.5-14.5); Red Blood Cell (RBC) Count 5.62 mill/uL (4.70-6.10); White Blood Cell (WBC) Count 6.7 thou/uL (4.8-10.8)
[2020-05-08 06:13] LABS: Anion Gap 16 mmol/L (10-20); BUN (Urea Nitrogen) 23 mg/dL (8.4-25.7); Calc. Creatinine Clearance 73 mL/min (70-130); Calcium 9.1 mg/dL (7.8-10.44); Carbon Dioxide 28 mmol/L (23-31); Chloride 99 mmol/L (98-107); Estimated GFR-MDRD 63; Glucose 172 mg/dL (83-110); Magnesium 1.9 mg/dL (1.6-2.6); Potassium 4.2 mmol/L (3.5-5.1); Sodium 139 mmol/L (136-145)
[2020-05-08] MEDS ORDERED: Ketotifen Fumarate 0.025% Ophth Soln 5 ml Bottle EA EYE PRN (07:43)
[2020-05-08] MEDS ORDERED: Artificial Tear Sol 15 ML BOT EA EYE PRN (08:22)
[2020-05-08] MEDS: Azithromycin 250 MG TAB PO SCH (09:15)
[2020-05-08] MEDS: risperiDONE 0.25 MG TAB PO SCH (09:15)
[2020-05-08] MEDS: Aspirin Chewable 81 MG TAB PO SCH (09:15)
[2020-05-08] MEDS: FLUoxetine HCl 10 MG CAP PO SCH (09:15)
[2020-05-08] MEDS: guaiFENesin ER 600 MG TAB PO SCH ×2 (09:16→20:09)
[2020-05-08] MEDS: Divalproex Sodium 125 mg Sprinkle Capsule PO SCH ×2 (09:16→20:09)
[2020-05-08] MEDS: Cyanocobalamin (Vitamin B-12) 1,000 MCG TAB PO SCH (09:16)
[2020-05-08] MEDS: Ipratropium Bromide 2.5 ml Neb NEB SCH ×2 (16:41→19:37)
--- NOTE | 2020-05-08 17:19 | PDOC.HOSPP ---
- Subjective Subjective: confused, trying to take his lines and iv out, required sitter. - Objective Vital Signs & Weight: Vital Signs (12 hours) Temp Pulse Resp BP Pulse Ox 05/08/20 15:08 97.7 F 73 20 138/72 96 05/08/20 12:09 97.3 F L 83 19 108/55 L 93 L 05/08/20 07:17 95 20 146/58 H 94 L Weight Weight 215 lb 1.6 oz I&O: 05/07/20 05/08/20 05/09/20 06:59 06:59 06:59 Intake Total 120 Balance 120 Result Diagrams: 05/08/20 05:31 05/08/20 05:31 Additional Labs: Accuchecks 05/08/20 05/08/20 05/08/20 16:44 10:43 05:44 POC Glucose 185 H 250 H 167 H Radiology Reviewed by me: Yes EKG Reviewed by me: Yes Hospitalist ROS - Medication Medications: Active Medications Generic Name Dose Route Start Last Admin Trade Name Freq PRN Reason Stop Dose Admin Aspirin 81 mg 05/08/20 09:00 05/08/20 09:15 Aspirin Chewable 81 Mg Tab PO 81 mg DAILY GUERRERO Administration Azithromycin 500 mg 05/08/20 09:00 05/08/20 09:15 Azithromycin 250 Mg Tab PO 500 mg DAILY GUERRERO Administration Cyanocobalamin 1,000 mcg 05/08/20 09:00 05/08/20 09:16 Cyanocobalamin (Vitamin B-12) 1,000 Mcg Tab PO 1,000 mcg DAILY GUERRERO Administration Divalproex Sodium 250 mg 05/08/20 09:00 05/08/20 09:16 Divalproex Sodium 125 Mg Sprinkle Capsule PO 250 mg BID GUERRERO Administration Fluoxetine HCl 10 mg 05/08/20 09:00 05/08/20 09:15 Fluoxetine Hcl 10 Mg Cap PO 10 mg DAILY GUERRERO Administration Furosemide 40 mg 05/08/20 06:00 05/08/20 15:12 Furosemide 40 Mg/4 Ml Vial SLOW IVP 40 mg 0600,1400 GUERRERO Administration Guaifenesin 600 mg 05/08/20 09:00 05/08/20 09:16 Guaifenesin Er 600 Mg Tab PO 600 mg BID GUERRERO Administration Ceftriaxone Sodium 1 gm/ 100 mls @ 200 mls/hr 05/08/20 03:00 05/08/20 05:35 Sodium Chloride IVPB 100 mls Q24HR GUERRERO Administration Ipratropium [place] 2.5 ml 05/08/20 13:00 05/08/20 16:41 Ipratropium [place] 2.5 Ml Neb NEB Not Given [id number] GUERRERO Memantine 5 mg 05/08/20 09:00 05/08/20 09:32 Memantine Hcl 5 Mg Tab PO 05/10/20 23:00 5 mg BID GUERRERO Administration Risperidone 0.5 mg 05/08/20 09:00 05/08/20 09:15 Risperidone 0.25 Mg Tab PO 0.5 mg DAILY GUERRERO Administration Sodium Chloride 10 ml 05/08/20 09:00 05/08/20 09:16 Flush - Normal Saline 10 Ml Syringe IVF 10 ml Q12HR GUERRERO Administration - Exam General Appearance: NAD Eye: PERRL ENT: normocephalic atraumatic Neck: supple Heart: RRR Respiratory: rhonchi Gastrointestinal: soft, non-tender Extremities: 1+ LE edema Skin: normal turgor Neurological - other findings: confused Hosp A/P - Plan Acute on chronic hypoxic respiratory failure - likely d/t combination of COPD/CHF exac --COVID negative --taper IV steroids, and cont with empric IV antibiotics --O2 supplement and wean as tolerated. cont nebs Chronic obstructive pulmonary disease with acute exacerbation --cont nebs, empiric IV abx and taper steroid Acute on chronic diastolic heart failure --Previous echo in July of this year showed EF 50 to 55% --Continue IV Lasix --Daily weights --Strict intake and outputs Hypertension --BP stable, cont home meds Dementia with history of behavioral disturbances --resumed home meds. add Seroquel at bedtime
[2020-05-08] MEDS: Mometasone 100 MCG/Formoterol 5 MCG 120 PUFF INHALER INH SCH (19:35)
[2020-05-08] MEDS ORDERED: FLU VACC QS2020-21(65YR UP)/PF 240 MCG/0.7 ML SYRINGE IM ONE (21:00)
[2020-05-08] MEDS ORDERED: Melatonin/Pyridoxine [Melatonin 5 Mg Tablet] PO SCH (21:00)
[2020-05-09] MEDS: Ipratropium Bromide 2.5 ml Neb NEB SCH ×4 (00:55→19:11)
[2020-05-09 04:46] LABS: Band 10 % (5-11); Hemoglobin 15.6 g/dL (14.0-18.0); Lymphocytes 14 % (21-51); MDiff Complete? YES; Mean Corpuscular HGB CONC 33.5 g/dL (32.0-36.0); Mean Corpuscular Volume 95.8 fL (78.0-98.0); Mean Platelet Volume 9.8 fL (7.4-10.4); Metamyelocyte 1 % (0-0); Monocytes 1 % (0-10); Neutrophil 74 % (42-75); Platelet Count 119 thou/uL (130-400); Platelet Morphology Comment Appears Decreased; RBC Distribution Width 13.4 % (11.5-14.5); Red Blood Cell (RBC) Count 4.87 mill/uL (4.70-6.10); White Blood Cell (WBC) Count 10.9 thou/uL (4.8-10.8)
[2020-05-09 05:08] LABS: BUN (Urea Nitrogen) 37 mg/dL (8.4-25.7); Calc. Creatinine Clearance 66 mL/min (70-130); Calcium 8.7 mg/dL (7.8-10.44); Carbon Dioxide 22 mmol/L (23-31); Chloride 98 mmol/L (98-107); Estimated GFR-MDRD 56; Glucose 183 mg/dL (83-110); Potassium 5.1 mmol/L (3.5-5.1); Sodium 135 mmol/L (136-145)
[2020-05-09 05:09] LABS: Anion Gap 20 mmol/L (10-20)
[2020-05-09] MEDS: cefTRIAXone\\ROCEPHIN 1 GM in Sodium Chloride 0.9% 100 ML IVPB SCH (06:05)
[2020-05-09] MEDS: Furosemide 40 MG/4 ML VIAL SLOW IVP SCH ×2 (06:06→14:29)
[2020-05-09] MEDS: Mometasone 100 MCG/Formoterol 5 MCG 120 PUFF INHALER INH SCH ×2 (08:13→19:10)
[2020-05-09] MEDS: Potassium Citrate 10 MEQ TAB PO SCH (08:54)
[2020-05-09] MEDS: Divalproex Sodium 125 mg Sprinkle Capsule PO SCH ×2 (08:54→20:11)
[2020-05-09] MEDS: methylPREDNISolone Sod Succ 40 MG VIAL IVP SCH (08:54)
[2020-05-09] MEDS: Aspirin Chewable 81 MG TAB PO SCH (08:55)
[2020-05-09] MEDS: FLUoxetine HCl 10 MG CAP PO SCH (08:55)
[2020-05-09] MEDS: guaiFENesin ER 600 MG TAB PO SCH ×2 (08:55→20:12)
[2020-05-09] MEDS: risperiDONE 0.25 MG TAB PO SCH (08:55)
[2020-05-09] MEDS: Azithromycin 250 MG TAB PO SCH (08:55)
[2020-05-09] MEDS: Cyanocobalamin (Vitamin B-12) 1,000 MCG TAB PO SCH (08:56)
--- NOTE | 2020-05-09 17:08 | PDOC.HOSPP ---
- Subjective Subjective: Seen examined at bedside. His mental status much better today. We have discontinued sitter, as well as releasing him from soft restraint. He is voiding to improve, his oxygen had weaned down to room air, satting in the mid 90%. - Objective Vital Signs & Weight: Vital Signs (12 hours) Temp Pulse Resp BP Pulse Ox 05/09/20 15:41 98.0 F 82 16 130/62 94 L 05/09/20 13:17 78 16 05/09/20 12:38 97.8 F 60 18 144/65 H 99 05/09/20 08:55 94 L 05/09/20 08:07 52 L 16 05/09/20 07:50 97.4 F L 82 16 138/72 94 L Weight Weight 218 lb 1.6 oz I&O: 05/08/20 05/09/20 05/10/20 06:59 06:59 06:59 Intake Total 120 1200 Output Total 1675 Balance 120 -475 Result Diagrams: 05/09/20 04:11 05/09/20 04:11 Radiology Reviewed by me: Yes EKG Reviewed by me: Yes Hospitalist ROS - Medication Medications: Active Medications Generic Name Dose Route Start Last Admin Trade Name Freq PRN Reason Stop Dose Admin Albuterol/Ipratropium 3 ml 05/08/20 02:55 05/08/20 19:37 Ipratropium/Albuterol Sulfate 3 Ml Neb NEB 3 ml [id number] PRN Administration SOB &/or Wheezing Aspirin 81 mg 05/08/20 09:00 05/09/20 08:55 Aspirin Chewable 81 Mg Tab PO 81 mg DAILY GUERRERO Administration Cyanocobalamin 1,000 mcg 05/08/20 09:00 05/09/20 08:56 Cyanocobalamin (Vitamin B-12) 1,000 Mcg Tab PO 1,000 mcg DAILY GUERRERO Administration Divalproex Sodium 250 mg 05/08/20 09:00 05/09/20 08:54 Divalproex Sodium 125 Mg Sprinkle Capsule PO 250 mg BID GUERRERO Administration Fluoxetine HCl 10 mg 05/08/20 09:00 05/09/20 08:55 Fluoxetine Hcl 10 Mg Cap PO 10 mg DAILY GUERRERO Administration Furosemide 40 mg 05/08/20 06:00 05/09/20 14:29 Furosemide 40 Mg/4 Ml Vial SLOW IVP 40 mg 0600,1400 GUERRERO Administration Guaifenesin 600 mg 05/08/20 09:00 05/09/20 08:55 Guaifenesin Er 600 Mg Tab PO 600 mg BID GUERRERO Administration Ceftriaxone Sodium 1 gm/ 100 mls @ 200 mls/hr 05/08/20 03:00 05/09/20 06:05 Sodium Chloride IVPB 100 mls Q24HR GUERRERO Administration Ipratropium [place] 2.5 ml 05/08/20 13:00 05/09/20 13:17 Ipratropium [place] 2.5 Ml Neb NEB 2.5 ml [id number] GUERRERO Administration Memantine 5 mg 05/08/20 09:00 05/09/20 08:54 Memantine Hcl 5 Mg Tab PO 05/10/20 23:00 5 mg BID GUERRERO Administration Mometasone Furoate/Formoterol Fumar 2 puff 05/08/20 18:30 05/09/20 08:13 Mometasone 100 Mcg/Formoterol 5 Mcg 120 Puff Inhaler INH 2 puff BID-RT GUERRERO Administration Potassium Citrate 10 meq 05/09/20 08:00 05/09/20 08:54 Potassium Citrate 10 Meq Tab PO 10 meq QAM-WM GUERRERO Administration Quetiapine Fumarate 25 mg 05/08/20 21:00 05/08/20 20:09 Quetiapine Fumarate 25 Mg Tab PO 25 mg HS GUERRERO Administration Risperidone 0.5 mg 05/08/20 09:00 05/09/20 08:55 Risperidone 0.25 Mg Tab PO 0.5 mg DAILY GUERRERO Administration Sodium Chloride 10 ml 05/08/20 09:00 05/09/20 08:56 Flush - Normal Saline 10 Ml Syringe IVF 10 ml Q12HR GUERRERO Administration - Exam General Appearance: NAD Eye: PERRL ENT: normocephalic atraumatic Neck: supple Heart: RRR, no murmur Respiratory: CTAB Gastrointestinal: soft Extremities: no cyanosis, no clubbing, 1+ LE edema Skin: normal turgor Neurological: cranial nerve grossly intact Musculoskeletal: generalized weakness Psychiatric: normal affect, normal behavior Hosp A/P - Plan Acute on chronic hypoxic respiratory failure - likely d/t combination of COPD/CHF exac --COVID negative --transition to oral prednisone, and cont with empric IV antibiotics --O2 supplement and wean as tolerated. cont nebs --PT eval Chronic obstructive pulmonary disease with acute exacerbation --cont nebs, empiric IV abx and transition to PO steroid Acute on chronic diastolic heart failure --Previous echo in July of this year showed EF 50 to 55% --Continue IV Lasix --Daily weights --Strict intake and outputs --PT eval Hypertension --BP stable, cont home meds Dementia with history of behavioral disturbances --resumed home meds. add Seroquel at bedtime. Mental status improved, d/c sitter, d/c restraints. Follow clinically --probably back to SNF on Tuesday
[2020-05-09] MEDS: hydrOXYzine Pamoate 25 mg Capsule PO SCH (20:15)
[2020-05-10] MEDS: Ipratropium Bromide 2.5 ml Neb NEB SCH ×4 (00:42→18:47)
[2020-05-10] MEDS: cefTRIAXone\\ROCEPHIN 1 GM in Sodium Chloride 0.9% 100 ML IVPB SCH (05:40)
[2020-05-10] MEDS: Furosemide 40 MG/4 ML VIAL SLOW IVP SCH ×2 (05:41→15:33)
[2020-05-10] MEDS ORDERED: Aspirin Chewable 81 MG TAB PO SCH (09:00)
[2020-05-10] MEDS: guaiFENesin ER 600 MG TAB PO SCH ×2 (09:04→21:53)
[2020-05-10] MEDS: Aspirin Chewable 81 MG TAB PO SCH (09:04)
[2020-05-10] MEDS: FLUoxetine HCl 10 MG CAP PO SCH (09:04)
[2020-05-10] MEDS: Divalproex Sodium 125 mg Sprinkle Capsule PO SCH ×2 (09:04→21:52)
[2020-05-10] MEDS: Donepezil HCl 10 MG TAB PO SCH (09:05)
[2020-05-10] MEDS: risperiDONE 0.25 MG TAB PO SCH (09:05)
[2020-05-10] MEDS: predniSONE 20 MG TAB PO SCH (09:05)
[2020-05-10] MEDS: Cyanocobalamin (Vitamin B-12) 1,000 MCG TAB PO SCH (09:05)
[2020-05-10] MEDS: Potassium Citrate 10 MEQ TAB PO SCH (09:05)
[2020-05-10] MEDS: Mometasone 100 MCG/Formoterol 5 MCG 120 PUFF INHALER INH SCH ×2 (11:21→18:36)
--- NOTE | 2020-05-10 13:01 | PDOC.HOSPP ---
- Subjective Encounter Date: 05/10/20 Encounter Time: 10:40 Subjective: It appears patient is having a good conversation. He keeps asking whether I am coming from [place] [facility]. Lung sounds mild crackles. He is on restraints this morning. - Objective Vital Signs & Weight: Vital Signs (12 hours) Temp Pulse Resp BP Pulse Ox 05/10/20 11:44 98.6 F 78 150/72 H 100 05/10/20 08:00 98.6 F 60 20 142/75 H 94 L 05/10/20 04:00 98.8 F 66 16 134/76 92 L 05/10/20 01:27 90 L Weight Weight 210 lb 11.2 oz I&O: 05/09/20 05/10/20 05/11/20 06:59 06:59 06:59 Intake Total 1200 1138 Output Total 1675 1600 Balance -475 -462 Result Diagrams: 05/09/20 04:11 05/09/20 04:11 Hospitalist ROS - Medication Medications: Active Medications Generic Name Dose Route Start Last Admin Trade Name Freq PRN Reason Stop Dose Admin Albuterol/Ipratropium 3 ml 05/08/20 02:55 05/08/20 19:37 Ipratropium/Albuterol Sulfate 3 Ml Neb NEB 3 ml [id number] PRN Administration SOB &/or Wheezing Aspirin 81 mg 05/08/20 09:00 05/10/20 09:04 Aspirin Chewable 81 Mg Tab PO 81 mg DAILY GUERRERO Administration Cyanocobalamin 1,000 mcg 05/08/20 09:00 05/10/20 09:05 Cyanocobalamin (Vitamin B-12) 1,000 Mcg Tab PO 1,000 mcg DAILY GUERRERO Administration Divalproex Sodium 250 mg 05/08/20 09:00 05/10/20 09:04 Divalproex Sodium 125 Mg Sprinkle Capsule PO 250 mg BID GUERRERO Administration Donepezil HCl 10 mg 05/10/20 09:00 05/10/20 09:05 Donepezil Hcl 10 Mg Tab PO 10 mg DAILY GUERRERO Administration Fluoxetine HCl 10 mg 05/08/20 09:00 05/10/20 09:04 Fluoxetine Hcl 10 Mg Cap PO 10 mg DAILY GUERRERO Administration Furosemide 40 mg 05/08/20 06:00 05/10/20 05:41 Furosemide 40 Mg/4 Ml Vial SLOW IVP 40 mg 0600,1400 GUERRERO Administration Guaifenesin 600 mg 05/08/20 09:00 05/10/20 09:04 Guaifenesin Er 600 Mg Tab PO 600 mg BID GUERRERO Administration Hydroxyzine Pamoate 25 mg 05/09/20 21:00 05/09/20 20:15 Hydroxyzine Pamoate 25 Mg Capsule PO 25 mg BID GUERRERO Administration Ceftriaxone Sodium 1 gm/ 100 mls @ 200 mls/hr 05/08/20 03:00 05/10/20 05:40 Sodium Chloride IVPB 100 mls Q24HR GUERRERO Administration Ipratropium [place] 2.5 ml 05/08/20 13:00 05/10/20 11:24 Ipratropium [place] 2.5 Ml Neb NEB 2.5 ml [id number] GUERRERO Administration Memantine 5 mg 05/08/20 09:00 05/10/20 09:05 Memantine Hcl 5 Mg Tab PO 05/10/20 23:00 5 mg BID GUERRERO Administration Mometasone Furoate/Formoterol Fumar 2 puff 05/08/20 18:30 05/10/20 11:21 Mometasone 100 Mcg/Formoterol 5 Mcg 120 Puff Inhaler INH 2 puff BID-RT GUERRERO Administration Potassium Citrate 10 meq 05/09/20 08:00 05/10/20 09:05 Potassium Citrate 10 Meq Tab PO 10 meq QAM-WM GUERRERO Administration Prednisone 40 mg 05/10/20 08:00 05/10/20 09:05 Prednisone 20 Mg Tab PO 40 mg QAM-WM GUERRERO Administration Quetiapine Fumarate 25 mg 05/08/20 21:00 05/09/20 20:12 Quetiapine Fumarate 25 Mg Tab PO 25 mg HS GUERRERO Administration Risperidone 0.5 mg 05/08/20 09:00 05/10/20 09:05 Risperidone 0.25 Mg Tab PO 0.5 mg DAILY GUERRERO Administration Sodium Chloride 10 ml 05/08/20 09:00 05/09/20 20:15 Flush - Normal Saline 10 Ml Syringe IVF 10 ml Q12HR GUERREOR Administration - Exam General Appearance: NAD, awake alert Eye: PERRL ENT: normocephalic atraumatic Neck: supple Heart: RRR Respiratory: CTAB, normal chest expansion Gastrointestinal: soft, normal bowel sounds Neurological: no new deficit Psychiatric: oriented to person Hosp A/P - Plan Acute on chronic hypoxic respiratory failure - likely d/t combination of COPD/CHF exac --COVID negative --Prednisone --O2 supplement and wean as tolerated. cont nebs --PT eval Chronic obstructive pulmonary disease with acute exacerbation --cont nebs, empiric IV abx and transition to PO steroid -- Acute on chronic diastolic heart failure --Previous echo in July of this year showed EF 50 to 55% --Continue IV Lasix --Daily weights --Strict intake and outputs --PT eval --Negative fluid balance and he lost about 5pounds since admission. Hypertension --BP stable, cont home meds Dementia with history of behavioral disturbances --resumed home meds. add Seroquel at bedtime. - he is on restraints. Follow clinically --probably back to SNF on Tuesday cont with empric IV antibiotics-------> white count is slightly higher today may be due to prednisone. However will check white count and if it is less, than we will change the IV to p.o. antibiotic.
[2020-05-10] MEDS: hydrOXYzine Pamoate 25 mg Capsule PO SCH ×2 (15:33→21:53)
[2020-05-11] MEDS: Ipratropium Bromide 2.5 ml Neb NEB SCH ×4 (00:22→18:31)
[2020-05-11] MEDS: cefTRIAXone\\ROCEPHIN 1 GM in Sodium Chloride 0.9% 100 ML IVPB SCH (02:07)
[2020-05-11] MEDS: Furosemide 40 MG/4 ML VIAL SLOW IVP SCH ×2 (05:15→14:54)
[2020-05-11] MEDS: Mometasone 100 MCG/Formoterol 5 MCG 120 PUFF INHALER INH SCH ×2 (07:31→18:30)
[2020-05-11] MEDS: Aspirin Chewable 81 MG TAB PO SCH (08:40)
[2020-05-11] MEDS: FLUoxetine HCl 10 MG CAP PO SCH (08:40)
[2020-05-11] MEDS: predniSONE 20 MG TAB PO SCH (08:41)
[2020-05-11] MEDS: risperiDONE 0.25 MG TAB PO SCH (08:41)
[2020-05-11] MEDS: Divalproex Sodium 125 mg Sprinkle Capsule PO SCH ×2 (08:41→21:20)
[2020-05-11] MEDS: guaiFENesin ER 600 MG TAB PO SCH ×2 (08:42→21:21)
[2020-05-11] MEDS: Cyanocobalamin (Vitamin B-12) 1,000 MCG TAB PO SCH (08:42)
[2020-05-11] MEDS: Potassium Citrate 10 MEQ TAB PO SCH (08:42)
[2020-05-11] MEDS: Donepezil HCl 10 MG TAB PO SCH (08:42)
[2020-05-11] MEDS: hydrOXYzine Pamoate 25 mg Capsule PO SCH ×2 (08:43→21:21)
[2020-05-11 09:32] LABS: #Basophils 0.1 thou/uL (0.0-0.2); #Lymphocytes 2.8 thou/uL (1.20-3.40); #Monocytes 0.7 thou/uL (0.11-0.59); #Neutrophils 6.4 thou/uL (1.40-6.50); %Basophils 0.8 % (0.0-1.0); %Eosinophils 0.2 % (0.0-10.0); %Lymphocytes 27.7 % (21.0-51.0); %Monocytes 7.2 % (0.0-10.0); Hemoglobin 16.4 g/dL (14.0-18.0); Mean Corpuscular HGB CONC 32.2 g/dL (32.0-36.0); Mean Corpuscular Hemoglobin 31.2 pg (27.0-31.0); Mean Corpuscular Volume 96.7 fL (78.0-98.0); Mean Platelet Volume 9.1 fL (7.4-10.4); Platelet Count 190 thou/uL (130-400); RBC Distribution Width 13.4 % (11.5-14.5); Red Blood Cell (RBC) Count 5.25 mill/uL (4.70-6.10); White Blood Cell (WBC) Count 10.1 thou/uL (4.8-10.8)
[2020-05-11 09:53] LABS: Anion Gap 14 mmol/L (10-20); BUN (Urea Nitrogen) 34 mg/dL (8.4-25.7); Calc. Creatinine Clearance 78 mL/min (70-130); Calcium 8.8 mg/dL (7.8-10.44); Carbon Dioxide 37 mmol/L (23-31); Chloride 93 mmol/L (98-107); Estimated GFR-MDRD 71; Glucose 125 mg/dL (83-110); Potassium 3.5 mmol/L (3.5-5.1); Sodium 140 mmol/L (136-145)
--- NOTE | 2020-05-11 13:51 | PDOC.HOSPP ---
- Subjective Encounter Date: 05/11/20 Encounter Time: 10:30 Subjective: Patient resting, no acute events noted overnight. He is still on restraints. He appears quite fatigued. - Objective Vital Signs & Weight: Vital Signs (12 hours) Temp Pulse Resp BP Pulse Ox 05/11/20 11:32 97.8 F 69 15 130/64 95 05/11/20 08:50 95 05/11/20 07:57 97.5 F L 58 L 17 126/84 94 L 05/11/20 07:29 71 20 05/11/20 04:02 97.5 F L 61 140/72 94 L Weight Weight 204 lb 14.4 oz I&O: 05/10/20 05/11/20 05/12/20 06:59 06:59 06:59 Intake Total 1138 60 Output Total 1600 2765 Balance -565 -0814 Result Diagrams: 05/11/20 08:58 05/11/20 08:58 Hospitalist ROS - Medication Medications: Active Medications Generic Name Dose Route Start Last Admin Trade Name Freq PRN Reason Stop Dose Admin Albuterol/Ipratropium 3 ml 05/08/20 02:55 05/10/20 18:36 Ipratropium/Albuterol Sulfate 3 Ml Neb NEB 3 ml [id number] PRN Administration SOB &/or Wheezing Aspirin 81 mg 05/08/20 09:00 05/11/20 08:40 Aspirin Chewable 81 Mg Tab PO 81 mg DAILY GUERRERO Administration Cyanocobalamin 1,000 mcg 05/08/20 09:00 05/11/20 08:42 Cyanocobalamin (Vitamin B-12) 1,000 Mcg Tab PO 1,000 mcg DAILY GUERRERO Administration Divalproex Sodium 250 mg 05/08/20 09:00 05/11/20 08:41 Divalproex Sodium 125 Mg Sprinkle Capsule PO 250 mg BID GUERRERO Administration Donepezil HCl 10 mg 05/10/20 09:00 05/11/20 08:42 Donepezil Hcl 10 Mg Tab PO 10 mg DAILY GUERRERO Administration Fluoxetine HCl 10 mg 05/08/20 09:00 05/11/20 08:40 Fluoxetine Hcl 10 Mg Cap PO 10 mg DAILY GUERRERO Administration Furosemide 40 mg 05/08/20 06:00 05/11/20 05:15 Furosemide 40 Mg/4 Ml Vial SLOW IVP 40 mg 0600,1400 GUERRERO Administration Guaifenesin 600 mg 05/08/20 09:00 05/11/20 08:42 Guaifenesin Er 600 Mg Tab PO 600 mg BID GUERRERO Administration Hydroxyzine Pamoate 25 mg 05/09/20 21:00 05/11/20 08:43 Hydroxyzine Pamoate 25 Mg Capsule PO 25 mg BID GUERRERO Administration Ceftriaxone Sodium 1 gm/ 100 mls @ 200 mls/hr 05/08/20 03:00 05/11/20 02:07 Sodium Chloride IVPB 100 mls Q24HR GUERRERO Administration Ipratropium [place] 2.5 ml 05/08/20 13:00 05/11/20 07:29 Ipratropium [place] 2.5 Ml Neb NEB 2.5 ml [id number] GUERRERO Administration Mometasone Furoate/Formoterol Fumar 2 puff 05/08/20 18:30 05/11/20 07:31 Mometasone 100 Mcg/Formoterol 5 Mcg 120 Puff Inhaler INH 2 puff BID-RT GUERRERO Administration Potassium Citrate 10 meq 05/09/20 08:00 05/11/20 08:42 Potassium Citrate 10 Meq Tab PO 10 meq QAM-WM GUERRERO Administration Prednisone 40 mg 05/10/20 08:00 05/11/20 08:41 Prednisone 20 Mg Tab PO 40 mg QAM-WM GUERRERO Administration Quetiapine Fumarate 25 mg 05/08/20 21:00 05/10/20 21:53 Quetiapine Fumarate 25 Mg Tab PO 25 mg HS GUERRERO Administration Risperidone 0.5 mg 05/08/20 09:00 05/11/20 08:41 Risperidone 0.25 Mg Tab PO 0.5 mg DAILY GUERRERO Administration Sodium Chloride 10 ml 05/08/20 09:00 05/11/20 08:43 Flush - Normal Saline 10 Ml Syringe IVF 10 ml Q12HR GUERRERO Administration - Exam General Appearance: ill appearing Eye: PERRL ENT: normocephalic atraumatic Neck: supple Heart: RRR Respiratory: CTAB Gastrointestinal: soft, normal bowel sounds, distended Neurological: no new deficit Psychiatric: somnolent, lethargic Hosp A/P - Plan Acute on chronic hypoxic respiratory failure - likely d/t combination of COPD/CHF exac --COVID negative --Prednisone --O2 supplement and wean as tolerated. cont nebs --PT eval Chronic obstructive pulmonary disease with acute exacerbation --cont nebs, empiric IV abx and transition to PO steroid -- Acute on chronic diastolic heart failure --Previous echo in July of this year showed EF 50 to 55% --Continue IV Lasix --Daily weights --Strict intake and outputs --PT eval --Negative fluid balance and he lost about 5pounds since admission. Hypertension --BP stable, cont home meds Dementia with history of behavioral disturbances --resumed home meds. add Seroquel at bedtime. - he is on restraints. Follow clinically --probably back to SNF on Tuesday cont with empric IV antibiotics-------> white count is slightly higher today may be due to prednisone. However will check white count and if it is less, than we will change the IV to p.o. antibiotic. Switch the antibiotic to p.o. Plan for discharge tomorrow if he is stable.
[2020-05-11] MEDS: Doxycycline 100 MG CAP PO SCH (21:20)
[2020-05-12] MEDS: Ipratropium Bromide 2.5 ml Neb NEB SCH ×5 (01:15→23:30)
[2020-05-12] MEDS: cefTRIAXone\\ROCEPHIN 1 GM in Sodium Chloride 0.9% 100 ML IVPB SCH (03:33)
[2020-05-12 04:36] LABS: #Lymphocytes 2.3 thou/uL (1.20-3.40); #Monocytes 0.6 thou/uL (0.11-0.59); #Neutrophils 6.3 thou/uL (1.40-6.50); %Basophils 0.2 % (0.0-1.0); %Eosinophils 0.2 % (0.0-10.0); %Lymphocytes 24.9 % (21.0-51.0); %Monocytes 6.9 % (0.0-10.0); %Neutrophils 67.8 % (42.0-75.0); Hemoglobin 15.9 g/dL (14.0-18.0); Mean Corpuscular HGB CONC 32.6 g/dL (32.0-36.0); Mean Corpuscular Hemoglobin 31.5 pg (27.0-31.0); Mean Corpuscular Volume 96.5 fL (78.0-98.0); Mean Platelet Volume 9.4 fL (7.4-10.4); Platelet Count 190 thou/uL (130-400); RBC Distribution Width 13.3 % (11.5-14.5); Red Blood Cell (RBC) Count 5.05 mill/uL (4.70-6.10); White Blood Cell (WBC) Count 9.3 thou/uL (4.8-10.8)
[2020-05-12] MEDS: Furosemide 40 MG/4 ML VIAL SLOW IVP SCH ×2 (06:37→15:21)
[2020-05-12] MEDS: Mometasone 100 MCG/Formoterol 5 MCG 120 PUFF INHALER INH SCH ×2 (07:33→18:43)
[2020-05-12] MEDS: FLUoxetine HCl 10 MG CAP PO SCH (09:49)
[2020-05-12] MEDS: predniSONE 20 MG TAB PO SCH (09:49)
[2020-05-12] MEDS: Cyanocobalamin (Vitamin B-12) 1,000 MCG TAB PO SCH (09:49)
[2020-05-12] MEDS: Aspirin Chewable 81 MG TAB PO SCH (09:49)
[2020-05-12] MEDS: Divalproex Sodium 125 mg Sprinkle Capsule PO SCH ×2 (09:49→21:03)
[2020-05-12] MEDS: Doxycycline 100 MG CAP PO SCH ×2 (09:49→21:03)
[2020-05-12] MEDS: risperiDONE 0.25 MG TAB PO SCH (09:50)
[2020-05-12] MEDS: Potassium Citrate 10 MEQ TAB PO SCH (09:50)
[2020-05-12] MEDS: Donepezil HCl 10 MG TAB PO SCH (09:50)
[2020-05-12] MEDS: hydrOXYzine Pamoate 25 mg Capsule PO SCH ×2 (09:50→21:03)
[2020-05-12] MEDS: guaiFENesin ER 600 MG TAB PO SCH ×2 (09:50→21:03)
--- NOTE | 2020-05-12 13:16 | PDOC.HOSPP ---
- Subjective Encounter Date: 05/12/20 Encounter Time: 09:50 Subjective: Patient is resting. No complaints. He is still on soft restraints. - Objective Vital Signs & Weight: Vital Signs (12 hours) Temp Pulse Resp BP Pulse Ox 05/12/20 11:45 98.0 F 62 17 135/61 94 L 05/12/20 07:29 58 L 20 97 05/12/20 07:15 98.7 F 57 L 16 140/64 94 L 05/12/20 03:44 98.8 F 58 L 18 151/73 H 94 L 05/12/20 01:15 62 18 96 Weight Weight 201 lb I&O: 05/11/20 05/12/20 05/13/20 06:59 06:59 06:59 Intake Total 60 1700 Output Total 2725 1200 Balance -2665 500 Result Diagrams: 05/12/20 03:58 05/11/20 08:58 Hospitalist ROS - Medication Medications: Active Medications Generic Name Dose Route Start Last Admin Trade Name Freq PRN Reason Stop Dose Admin Albuterol/Ipratropium 3 ml 05/08/20 02:55 05/10/20 18:36 Ipratropium/Albuterol Sulfate 3 Ml Neb NEB 3 ml [id number] PRN Administration SOB &/or Wheezing Aspirin 81 mg 05/08/20 09:00 05/12/20 09:49 Aspirin Chewable 81 Mg Tab PO 81 mg DAILY GUERRERO Administration Cyanocobalamin 1,000 mcg 05/08/20 09:00 05/12/20 09:49 Cyanocobalamin (Vitamin B-12) 1,000 Mcg Tab PO 1,000 mcg DAILY GUERRERO Administration Divalproex Sodium 250 mg 05/08/20 09:00 05/12/20 09:49 Divalproex Sodium 125 Mg Sprinkle Capsule PO 250 mg BID GUERRERO Administration Donepezil HCl 10 mg 05/10/20 09:00 05/12/20 09:50 Donepezil Hcl 10 Mg Tab PO 10 mg DAILY GUERRERO Administration Doxycycline Hyclate 100 mg 05/11/20 21:00 05/12/20 09:49 Doxycycline 100 Mg Cap PO 100 mg BID GUERRERO Administration Fluoxetine HCl 10 mg 05/08/20 09:00 05/12/20 09:49 Fluoxetine Hcl 10 Mg Cap PO 10 mg DAILY GUERRERO Administration Furosemide 40 mg 05/08/20 06:00 05/12/20 06:37 Furosemide 40 Mg/4 Ml Vial SLOW IVP 40 mg 0600,1400 GUERRERO Administration Guaifenesin 600 mg 05/08/20 09:00 05/12/20 09:50 Guaifenesin Er 600 Mg Tab PO 600 mg BID GUERRERO Administration Hydroxyzine Pamoate 25 mg 05/09/20 21:00 05/12/20 09:50 Hydroxyzine Pamoate 25 Mg Capsule PO 25 mg BID GUERRERO Administration Ipratropium Colon 2.5 ml 05/08/20 13:00 05/12/20 07:29 Ipratropium Colon 2.5 Ml Neb NEB 2.5 ml [id number] GUERRERO Administration Mometasone Furoate/Formoterol Fumar 2 puff 05/08/20 18:30 05/12/20 07:33 Mometasone 100 Mcg/Formoterol 5 Mcg 120 Puff Inhaler INH 2 puff BID-RT GUERRERO Administration Potassium Citrate 10 meq 05/09/20 08:00 05/12/20 09:50 Potassium Citrate 10 Meq Tab PO 10 meq QAM-WM GUERRERO Administration Prednisone 40 mg 05/10/20 08:00 05/12/20 09:49 Prednisone 20 Mg Tab PO 40 mg QAM-WM GUERRERO Administration Quetiapine Fumarate 25 mg 05/08/20 21:00 05/11/20 21:21 Quetiapine Fumarate 25 Mg Tab PO 25 mg HS GUERRERO Administration Risperidone 0.5 mg 05/08/20 09:00 05/12/20 09:50 Risperidone 0.25 Mg Tab PO 0.5 mg DAILY GUERRERO Administration Sodium Chloride 10 ml 05/08/20 09:00 05/12/20 09:51 Flush - Normal Saline 10 Ml Syringe IVF 10 ml Q12HR GUERRERO Administration - Exam General Appearance: awake alert, ill appearing Eye: PERRL ENT: normocephalic atraumatic Neck: supple Heart: RRR Respiratory: CTAB, normal chest expansion Gastrointestinal: soft, normal bowel sounds Neurological: no focal deficits Musculoskeletal: generalized weakness Psychiatric: oriented to person, oriented to place Hosp A/P - Plan Acute on chronic hypoxic respiratory failure - likely d/t combination of COPD/CHF exac --COVID negative --Prednisone --O2 supplement and wean as tolerated. cont nebs --PT eval Chronic obstructive pulmonary disease with acute exacerbation --cont nebs, empiric IV abx and transition to PO steroid -- Acute on chronic diastolic heart failure --Previous echo in July of this year showed EF 50 to 55% --Continue IV Lasix --Daily weights --Strict intake and outputs --PT eval --Negative fluid balance and he lost about 5pounds since admission. Hypertension --BP stable, cont home meds Dementia with history of behavioral disturbances --resumed home meds. add Seroquel at bedtime. - he is on restraints. Follow clinically --probably back to SNF on Tuesday cont with empric IV antibiotics-------> white count is slightly higher today may be due to prednisone. However will check white count and if it is less, than we will change the IV to p.o. antibiotic. Switch the antibiotic to p.o. Plan for discharge tomorrow if he is stable. And for discharge today --he is on p.o. antibiotic he is afebrile and clinically stable to be discharged today.
[2020-05-13 04:29] LABS: #Basophils 0.1 thou/uL (0.0-0.2); #Lymphocytes 2.7 thou/uL (1.20-3.40); #Monocytes 0.7 thou/uL (0.11-0.59); #Neutrophils 7.3 thou/uL (1.40-6.50); %Basophils 0.9 % (0.0-1.0); %Eosinophils 0.4 % (0.0-10.0); %Lymphocytes 24.8 % (21.0-51.0); %Monocytes 6.2 % (0.0-10.0); %Neutrophils 67.7 % (42.0-75.0); Hemoglobin 16.3 g/dL (14.0-18.0); Mean Corpuscular HGB CONC 33.1 g/dL (32.0-36.0); Mean Corpuscular Hemoglobin 31.7 pg (27.0-31.0); Mean Corpuscular Volume 95.6 fL (78.0-98.0); Mean Platelet Volume 9.5 fL (7.4-10.4); Platelet Count 194 thou/uL (130-400); RBC Distribution Width 13.2 % (11.5-14.5); Red Blood Cell (RBC) Count 5.16 mill/uL (4.70-6.10); White Blood Cell (WBC) Count 10.8 thou/uL (4.8-10.8)
[2020-05-13] MEDS: Furosemide 40 MG/4 ML VIAL SLOW IVP SCH (06:25)
[2020-05-13] MEDS: Ipratropium Bromide 2.5 ml Neb NEB SCH ×3 (07:43→19:31)
[2020-05-13] MEDS: Mometasone 100 MCG/Formoterol 5 MCG 120 PUFF INHALER INH SCH ×2 (07:44→19:34)
[2020-05-13] MEDS: Potassium Citrate 10 MEQ TAB PO SCH (09:34)
[2020-05-13] MEDS: Divalproex Sodium 125 mg Sprinkle Capsule PO SCH (09:34)
[2020-05-13] MEDS: predniSONE 20 MG TAB PO SCH (09:34)
[2020-05-13] MEDS: guaiFENesin ER 600 MG TAB PO SCH (09:34)
[2020-05-13] MEDS: Aspirin Chewable 81 MG TAB PO SCH (09:34)
[2020-05-13] MEDS: hydrOXYzine Pamoate 25 mg Capsule PO SCH (09:34)
[2020-05-13] MEDS: Doxycycline 100 MG CAP PO SCH (09:34)
[2020-05-13] MEDS: risperiDONE 0.25 MG TAB PO SCH (09:34)
[2020-05-13] MEDS: FLUoxetine HCl 10 MG CAP PO SCH (09:34)
[2020-05-13] MEDS: Donepezil HCl 10 MG TAB PO SCH (09:34)
[2020-05-13] MEDS: Cyanocobalamin (Vitamin B-12) 1,000 MCG TAB PO SCH (09:34)
--- NOTE | 2020-05-13 13:00 | PDOC.DS.DS ---
Provider - Provider Date of Admission: 05/08/20 16:38 Admitting Provider: Jon Catalan MD Primary Care Physician: OUT OF TOWN Course - Hospital Course Hospital Course: Acute on chronic hypoxic respiratory failure - likely d/t combination of COPD/CHF exac --COVID negative --Prednisone --O2 supplement and wean as tolerated. cont nebs Chronic obstructive pulmonary disease with acute exacerbation --cont nebs, empiric IV abx and transition to PO steroid ---> completed the CT steroid will continue with the p.o. antibiotics upon discharge to the nursing home facility -- Acute on chronic diastolic heart failure --Previous echo in July of this year showed EF 50 to 55% --He was diuresed and followed with electrolyte panels. Hypertension Dementia with history of behavioral disturbances --resumed home meds. add Seroquel at bedtime. Stable to be discharged. He is discharged with doxycycline to complete the course for COPD exacerbation. Discharge time over 30 minutes. Resuscitation Status: 05/08/20 01:49 Resuscitation Status Routine Co-Sign Provider: Resuscitation Status: FULL: Full Resuscitation Discussed with: pt - Labs Lab Results: 05/13/20 03:58 05/11/20 08:58 Abnormal Lab Results - Last 48 hrs 05/12/20 03:58: MCH 31.5 H, Monocytes # 0.6 H 05/13/20 03:58: MCH 31.7 H, Neutrophils # 7.3 H, Monocytes # 0.7 H Microbiology - Entire Visit 05/07/20 19:46 Venous blood - Right Arm Blood Culture - Final NO GROWTH IN 5 DAYS 05/07/20 19:47 Venous blood - Left Hand Blood Culture - Final NO GROWTH IN 5 DAYS 05/07/20 20:30 Urine voided Urine Culture - Final NO GROWTH AT 36 HOURS 05/08/20 14:59 Stool C. difficile GDH Antigen & Toxins - Final 05/07/20 21:06 Nasopharyngeal swab Influenza Types A,B Direct EIA - Final - Physical Exam Vitals: Vital Signs (12 hours) Temp Pulse Resp BP Pulse Ox 05/13/20 08:10 98.0 F 63 16 158/84 H 97 05/13/20 07:43 63 18 97 05/13/20 04:00 98.6 F 59 L 18 123/76 94 L Weight Weight 200 lb Physical Exam: The patient was seen and examined on the day of discharge. Patient is off restraints. He is doing well. Plan to send him to the nursing home facility. Plan - Discharge Medications Prescriptions: Doxycycline [Vibramycin] 100 mg PO Q12HR 7 Days #14 cap Home Medications: Medication Instructions Recorded Confirmed Type Acetaminophen [Tylenol Extra 1,000 mg PO BID PRN 08/20/19 05/08/20 History Strength] Aspirin Chewable [Aspirin Chewable 1 tab PO DAILY 08/20/19 05/08/20 History Tablet] Cyanocobalamin (Vitamin B-12) 1 tab PO DAILY 08/20/19 05/08/20 History [Vitamin B-12] Dextran 70/Hypromellose 1 drop EA EYE Q6HR PRN 08/20/19 05/08/20 History [Artificial Tears Eye Drops] Divalproex Sodium [Depakote 2 capsule PO BID 08/20/19 05/08/20 History Sprinkle] Donepezil HCl [Aricept] 1 tab PO DAILY 08/20/19 05/08/20 History Fluticasone/Vilanterol [Breo 1 puff PO DAILY 08/20/19 05/08/20 History Ellipta] Furosemide [Lasix] 60 mg PO DAILY 08/20/19 05/08/20 History Ipratropium/Albuterol Sulfate 2 puff INH BID 08/20/19 05/08/20 History [DuoNeb] Ipratropium/Albuterol Sulfate 3 ml INH Q4HR PRN 08/20/19 05/08/20 History [Iprat-Albut 0.5-3(2.5) mg/3 ml] Ketotifen Fumarate [Zaditor 0.025% 1 drop EA EYE BID PRN 08/20/19 05/08/20 History Ophth Soln] Melatonin/Pyridoxine [Melatonin 5 5 mg PO HS 08/20/19 05/08/20 History mg Tablet] Potassium Citrate [Potassium 1 tab PO DAILY 08/20/19 05/08/20 History Citrate ER] guaiFENesin [Mucinex] 600 mg PO BID 08/20/19 05/08/20 History guaiFENesin/Dextromethorphan 10 ml PO Q4HR PRN 08/20/19 05/08/20 History [Verónica-Tussin Dm Liquid] FLUoxetine HCl [Prozac] 1 cap PO DAILY 05/08/20 05/08/20 History Memantine HCl [Namenda] 1 tab PO ASDIR 05/08/20 05/08/20 History Memantine HCl [Namenda] 1 tab PO ASDIR 05/08/20 05/08/20 History Umeclidinium [place] [Incruse 1 puff INH DAILY 05/08/20 05/08/20 History Ellipta] hydrOXYzine Pamoate [Vistaril] 1 cap PO BID 05/08/20 05/08/20 History risperiDONE [Risperdal] 1 tab PO DAILY 05/08/20 05/08/20 History Doxycycline [Vibramycin] 100 mg PO Q12HR 7 Days #14 cap 05/13/20 Rx Allergies: No Known Drug Allergies Allergy (Verified 05/08/20 07:52) - Discharge Instructions Activity:: Activity as Tolerated Nourishment:: Regular Diet - Follow up Plan Referrals: [facility]OUT OF [Primary Care Provider] - Disposition: PENITENTIARY FACILITY Quality - Care Measures CORE MEASURES:: N/A
[2020-05-13 19:25] VITALS: BP 143/63; TEMP 98.7
[2020-05-14] MEDS ORDERED: Furosemide 40 MG TAB PO SCH (09:00)
--- NOTE | 2020-05-17 12:15 | EKG ---
Test Reason : Blood Pressure : / mmHG Vent. Rate : 078 BPM Atrial Rate : 078 BPM P-R Int : 152 ms QRS Dur : 096 ms QT Int : 392 ms P-R-T Axes : -03 -25 135 degrees QTc Int : 446 ms Sinus rhythm with Premature atrial complexes with Abberant conduction Left ventricular hypertrophy with repolarization abnormality Cannot rule out Septal infarct , age undetermined Abnormal ECG Confirmed by DEMARIO MASSEY ([id number]), food expeditor PETRA RAY ([id number]) on 05/17/2020 12:14:50 PM Referred By: Confirmed By:DEMARIO MASSEY
== END 2020-05-13 19:40 | DRG 291 ==
LOC: ERS 19:02 → 2NO 05-08 00:49 → OBSVTOIN 05-08 16:38
PROVIDERS: ADMIT Internal Medicine; ATTEND Internal Medicine
DX: I11.0 Hypertensive heart disease with heart failure (principal); J96.21 Acute and chronic respiratory failure with hypoxia; J44.1 Chronic obstructive pulmonary disease with (acute) exacerbation; F03.91 Unspecified dementia, unspecified severity, with behavioral disturbance; Z20.828 Contact with and (suspected) exposure to other viral communicable diseases; I50.33 Acute on chronic diastolic (congestive) heart failure; I42.9 Cardiomyopathy, unspecified; H54.40 Blindness, one eye, unspecified eye; G47.00 Insomnia, unspecified; I35.0 Nonrheumatic aortic (valve) stenosis; Z79.82 Long term (current) use of aspirin; Z79.51 Long term (current) use of inhaled steroids; Z79.899 Other long term (current) drug therapy; Z78.1 Physical restraint status
CPT/HCPCS: 36415; 36416; 71045; 71275; 80048; 80053; 81003; 83605; 83690; 83735; 83880; 84484; 85025; 85379; 87040; 87086; 87324; 87449; 87635; 87804; 93005; 94640; 94664; 96365; 96375; 96376; 97139; G0378; J0692; J0696; J1940; J2920; J2930; J3490; J7512; J7620; Q0177; Q9967; U0002; U0003

== ENCOUNTER 2020-06-08 19:40 | Inpatient (IN) | payer MEDICARE, MEDICAID ==
[2020-06-08] MEDS ORDERED: Cefepime 2 GM VIAL ONE (20:30)
[2020-06-08] MEDS ORDERED: Vancomycin 1 GM/200 ML BAG ONE (20:30)
[2020-06-08] MEDS ORDERED: methylPREDNISolone Sod Succ/PF 125 MG/2 ML VIAL ONE (20:30)
[2020-06-08 20:43] LABS: #Basophils 0.1 thou/uL (0.0-0.2); #Eosinphils 0.3 thou/uL (0.0-0.7); #Lymphocytes 2.3 thou/uL (1.20-3.40); #Monocytes 0.8 thou/uL (0.11-0.59); #Neutrophils 3.7 thou/uL (1.40-6.50); %Basophils 1.3 % (0.0-1.0); %Eosinophils 3.6 % (0.0-10.0); %Monocytes 10.9 % (0.0-10.0); %Neutrophils 52.1 % (42.0-75.0); Hemoglobin 15.8 g/dL (14.0-18.0); Mean Corpuscular Hemoglobin 31.9 pg (27.0-31.0); Mean Corpuscular Volume 96.7 fL (78.0-98.0); Mean Platelet Volume 8.6 fL (7.4-10.4); Platelet Count 179 thou/uL (130-400); RBC Distribution Width 13.5 % (11.5-14.5); Red Blood Cell (RBC) Count 4.97 mill/uL (4.70-6.10)
[2020-06-08] MEDS ORDERED: Furosemide 40 MG/4 ML VIAL ONE (20:43)
[2020-06-08 20:44] LABS: Base Excess-Venous 7.5 mmol/L (-2.0 to 3.0); Bicarbonate (HCO3v) 33.2 mmol/L (22.0-28.0); CO2 Tension (PvCO2) 48.3 mmHg (40.0-50.0); Calcium, Ionized 1.01 mmol/L (1.15-1.33); Chloride 99 mmol/L (98-107); Hemoglobin - Calc 17.6 g/dL (14.0-18.0); Potassium 4.4 mmol/L (3.5-5.1); Sodium 143 mmol/L (138-145); T. Carbon Dioxide 34.7 mmol/L (22.0-28.0); vO2 Saturation-calc 98.9 % (60.0-85.0)
--- NOTE | 2020-06-08 20:48 | RAD ---
PORTABLE CHEST ONE VIEW: Date: 06-08-2020 Time: 8:08 p.m. History: Weakness, difficulty breathing. Comparison: 05-07-2020 FINDINGS: The heart size is enlarged. The lungs are expanded without lobar consolidation, pneumothoraces, hank pulmonary edema or pleural effusions. IMPRESSION: No acute process. POS: JIGNESH
[2020-06-08 21:04] LABS: ALT (SGPT) 11 U/L (8-55); AST (SGOT) 11 U/L (5-34); Albumin 3.6 g/dL (3.4-4.8); Alkaline Phosphatase 87 U/L (40-110); Anion Gap 13 mmol/L (10-20); BUN (Urea Nitrogen) 22 mg/dL (8.4-25.7); Bilirubin, Total 0.4 mg/dL (0.2-1.2); Calc. Creatinine Clearance 0 mL/min (70-130); Calcium 8.7 mg/dL (7.8-10.44); Carbon Dioxide 36 mmol/L (23-31); Chloride 97 mmol/L (98-107); Globulin 2.9 g/dL (2.4-3.5); Glucose 135 mg/dL (83-110); Potassium 4.2 mmol/L (3.5-5.1); Protein, Total 6.5 g/dL (5.8-8.1); Sodium 142 mmol/L (136-145)
[2020-06-08] MEDS ORDERED: Albuterol 200 PUFF (6.7GM INHALER) ONE (21:18)
--- NOTE | 2020-06-08 21:22 | CT ---
CT head noncontrast HISTORY: Altered mental status. FINDINGS: There is no evidence of acute intracranial hemorrhage or infarct. Prominent diffuse cortica l atrophy. There is no mass effect or shift of midline structures. Calcification within the arterial structures of the brain base. Visualized paranasal sinuses remain well aerated. IMPRESSION : Diffuse atrophy. No acute intracranial abnormalities are demonstrated. Atherosclerosis.
[2020-06-08 22:01] LABS: Bilirubin Negative (Negative); Blood, Urine Negative (Negative); Clarity Clear (Clear); Glucose, Urine (Dipstick) Normal (Negative); Ketone, Urine Negative (Negative); Leukocyte Negative Leu/uL (Negative); Nitrite Negative (Negative); Protein, Urine (Dipstick) Negative (Neg-Trace); Urobilinogen Normal mg/dL (Less than 2); pH, Urine 5.5 (5.0-9.0)
[2020-06-08 22:30] LABS: SARS-CoV-2 NAA Rapid Test Not Detected (NotDetected)
[2020-06-08] MEDS ORDERED: Albuterol Sulfate 2.5 mg/3 ml Neb NEB PRN (22:36)
[2020-06-09] MEDS ORDERED: cefTRIAXone\\ROCEPHIN 1 GM VIAL ONE (00:23)
[2020-06-09] MEDS: cefTRIAXone\\ROCEPHIN 1 GM in Sodium Chloride 0.9% 100 ML IVPB SCH (00:28)
--- NOTE | 2020-06-09 01:00 | HP ---
CHIEF COMPLAINT: Shortness of breath. HISTORY OF PRESENT ILLNESS: Mr. Beard is an 80-year-old male with past medical history of congestive heart failure, aortic valve stenosis, dementia, blindness in right eye, COPD, insomnia, anxiety, cardiomyopathy, among others, was brought to the emergency room from nursing facility for altered mental status, wheezing, and shortness of breath. At baseline, the patient is awake, alert, and oriented x3 as per records. Earlier today, the patient was only alert to verbal stimuli, but not oriented. He also reported that he was wheezing and short of breath. The patient was placed on oxygen, typically he is not on oxygen. Per senior living records, the patient has been exposed to individuals with coronavirus, but was tested negative in the past for coronavirus. In the emergency room, the patient was in respiratory distress, wheezing and was given bronchodilators, steroids, and also was given IV Lasix. Some improvement in his respiratory status. The patient is unable to give any further history. The patient is being admitted to hospital for further management. PAST MEDICAL HISTORY: As mentioned above in the history of present illness. PAST SURGICAL HISTORY: Unavailable at the time of this evaluation. FAMILY HISTORY: Reviewed and noncontributory. SOCIAL HISTORY: The patient lives in a long-term facility, otherwise unknown. REVIEW OF SYSTEMS: Unable to obtain due to the patient's underlying medical condition. ALLERGIES: NO KNOWN ALLERGIES. CURRENT MEDICATIONS: See home medication reconciliation form for updated medications. PHYSICAL EXAMINATION: GENERAL: The patient is awake, alert, in moderate distress. VITAL SIGNS: Blood pressure is 122/67, pulse is 88, respiratory rate is 27, temperature is 99.1, and oxygen saturation is 95% on 3 L/minute nasal cannula. HEAD AND NECK: Normocephalic and atraumatic. Neck is supple. CHEST: Coarse bilateral breath sounds. LUNGS: Respirations are unlabored. HEART: S1, S2. Regular. ABDOMEN: Soft, nontender. Bowel sounds present. NEUROLOGIC: Awake, alert. Able to answer simple . LABORATORY DATA: COVID-19 test negative. BNP is 102. CT of the brain, no acute findings. Troponin 0.02. Electrolytes; CO2 is 36, glucose 135, otherwise unremarkable. Lactic acid is 1.2. ABG; pH 7.44, pCO2 is 48, PaO2 is 125. CBC is reviewed, unremarkable. ASSESSMENT: 1. Chronic obstructive pulmonary disease with acute exacerbation. 2. Congestive heart failure with exacerbation? 3. Encephalopathy, acute, metabolic. 4. History of dementia. 5. Cardiomyopathy. PLAN: 1. Admit. 2. Oxygen to keep saturation more than 92%. 3. Continue with bronchodilator scheduled and as needed. 4. IV steroids. 5. Empiric IV antibiotic. 6. IV diuresis. 7. Reconcile home medications. 8. DVT prophylaxis as appropriate. 9. Expected length of stay, 2 midnights or more. Job ID: [id number]
--- NOTE | 2020-06-09 01:05 | PDOC.BPN ---
- Brief Progress Note [id number] HP dictated
[2020-06-09] MEDS ORDERED: methylPREDNISolone Sod Succ 40 MG VIAL ONE ×3 (04:15→15:42)
[2020-06-09] MEDS: Bacteriostatic Water 30 ML VIAL FS PRN ×2 (04:17→09:53)
[2020-06-09] MEDS: methylPREDNISolone Sod Succ 40 MG VIAL IVP SCH ×4 (04:23→21:49)
[2020-06-09 04:41] LABS: #Lymphocytes 1.5 thou/uL (1.20-3.40); #Monocytes 0.1 thou/uL (0.11-0.59); #Neutrophils 3.5 thou/uL (1.40-6.50); %Basophils 0.1 % (0.0-1.0); %Eosinophils 0.3 % (0.0-10.0); %Monocytes 1.9 % (0.0-10.0); %Neutrophils 68.7 % (42.0-75.0); Hemoglobin 15.7 g/dL (14.0-18.0); Mean Corpuscular HGB CONC 32.5 g/dL (32.0-36.0); Mean Corpuscular Hemoglobin 31.4 pg (27.0-31.0); Mean Corpuscular Volume 96.7 fL (78.0-98.0); Mean Platelet Volume 8.8 fL (7.4-10.4); Platelet Count 189 thou/uL (130-400); RBC Distribution Width 13.3 % (11.5-14.5); Red Blood Cell (RBC) Count 4.99 mill/uL (4.70-6.10); White Blood Cell (WBC) Count 5.1 thou/uL (4.8-10.8)
[2020-06-09] MEDS ORDERED: Albuterol Sulfate 2.5 mg/3 ml Neb ONE ×3 (04:46→14:14)
[2020-06-09] MEDS: Albuterol Sulfate 2.5 mg/3 ml Neb NEB SCH ×5 (04:46→19:32)
[2020-06-09 05:08] LABS: ALT (SGPT) 11 U/L (8-55); AST (SGOT) 11 U/L (5-34); Albumin 3.6 g/dL (3.4-4.8); Alkaline Phosphatase 82 U/L (40-110); Anion Gap 15 mmol/L (10-20); BUN (Urea Nitrogen) 25 mg/dL (8.4-25.7); Bilirubin, Total 0.4 mg/dL (0.2-1.2); Calc. Creatinine Clearance 71 mL/min (70-130); Calcium 8.9 mg/dL (7.8-10.44); Carbon Dioxide 34 mmol/L (23-31); Chloride 97 mmol/L (98-107); Glucose 199 mg/dL (83-110); Potassium 4.7 mmol/L (3.5-5.1); Protein, Total 6.6 g/dL (5.8-8.1); Sodium 141 mmol/L (136-145)
[2020-06-09] MEDS: Furosemide 40 MG/4 ML VIAL SLOW IVP SCH ×2 (08:34→15:45)
[2020-06-09] MEDS ORDERED: Furosemide 40 MG/4 ML VIAL ONE ×2 (08:35→15:42)
[2020-06-09] MEDS ORDERED: Aspirin Chewable 81 MG TAB ONE (08:35)
[2020-06-09] MEDS ORDERED: Aspirin Chewable 81 MG TAB PO SCH (09:00)
[2020-06-09] MEDS ORDERED: Enoxaparin Sodium 40 MG/0.4 ML SYRINGE ONE (09:46)
[2020-06-09] MEDS: Enoxaparin Sodium 40 MG/0.4 ML SYRINGE SC SCH (09:53)
--- NOTE | 2020-06-09 19:07 | PDOC.HOSPP ---
- Subjective Encounter Date: 06/09/20 Encounter Time: 19:05 Subjective: Patient seen for follow-up regarding COPD exacerbation. He reports he has shortness of breath with exertion. - Objective Vital Signs & Weight: Vital Signs (12 hours) Pulse Resp BP Pulse Ox 06/09/20 16:45 90 17 143/66 H 95 06/09/20 14:20 86 18 94 L 06/09/20 11:02 79 20 93 L Weight Weight 206 lb 6.4 oz Result Diagrams: 06/09/20 04:25 06/09/20 04:25 Additional Labs: I reviewed patient's labs and MAR EKG Reviewed by me: Yes (Normal sinus rhythm on telemetry) Hospitalist ROS - Review of Systems Respiratory: reports: SOB with excertion. denies: cough, shortness of breath, pleuritic pain, wheezing Cardiovascular: denies: chest pain, palpitations, orthopnea, paroxysmal noc. dyspnea, edema, light headedness - Medication Medications: Active Medications Generic Name Dose Route Start Last Admin Trade Name Freq PRN Reason Stop Dose Admin Albuterol Sulfate 2.5 mg 06/09/20 02:30 06/09/20 14:20 Albuterol Sulfate 2.5 Mg/3 Ml Neb NEB 2.5 mg [id number] GUERRERO Administration Aspirin 81 mg 06/09/20 09:00 06/09/20 08:43 Aspirin Chewable 81 Mg Tab PO 81 mg DAILY GUERRERO Administration Enoxaparin Sodium 40 mg 06/09/20 09:00 06/09/20 09:53 Enoxaparin Sodium 40 Mg/0.4 Ml Syringe SC 40 mg 0900 GUERRERO Administration Furosemide 40 mg 06/09/20 06:00 06/09/20 15:45 Furosemide 40 Mg/4 Ml Vial SLOW IVP 40 mg 0600,1400 GUERRERO Administration Ceftriaxone Sodium 1 gm/ 100 mls @ 200 mls/hr 06/08/20 23:59 06/09/20 00:28 Sodium Chloride IVPB 100 mls Q24HR GUERRERO Administration Doxycycline Hyclate 100 mg/ 100 mls @ 100 mls/hr 06/09/20 09:00 06/09/20 11:21 Sodium Chloride IVPB 100 mls Q12HR GUERRERO Administration Methylprednisolone Sodium Succinate 40 mg 06/09/20 03:00 06/09/20 15:46 Methylprednisolone Sod Succ 40 Mg Vial IVP 40 mg 0300,0900,1500,2100 GUERRERO Administration Sodium Chloride 10 ml 06/09/20 09:00 06/09/20 08:44 Flush - Normal Saline 10 Ml Syringe IVF 10 ml Q12HR GUERRERO Administration Sterile Water 1 ml 06/08/20 23:00 06/09/20 09:53 Bacteriostatic Water 30 Ml Vial FS 1 ml PRN PRN Administration RECONSTITUTION - Exam General Appearance: awake alert General - other findings: Obese ENT: moist mucosa Heart: RRR Respiratory: wheezes Gastrointestinal: soft, non-tender Skin: no rashes Psychiatric: normal affect, normal behavior, oriented to person, oriented to place Hosp A/P (1) COPD exacerbation Code(s): J44.1 - CHRONIC OBSTRUCTIVE PULMONARY DISEASE W (ACUTE) EXACERBATION Status: Acute (2) CHF exacerbation Code(s): I50.9 - HEART FAILURE, UNSPECIFIED Status: Acute (3) Dementia Code(s): F03.90 - UNSPECIFIED DEMENTIA WITHOUT BEHAVIORAL DISTURBANCE Status: Chronic (4) HTN (hypertension) Code(s): I10 - ESSENTIAL (PRIMARY) HYPERTENSION Status: Chronic - Plan continue antibiotics, out of bed/ambulate Continue IV ceftriaxone and doxycycline, continue DuoNebs as needed, continue oxygen as needed. Continue IV Solu-Medrol. Continue IV furosemide 40 mg twice daily for CHF exacerbation. Continue Namenda and Aricept for dementia. Resume home medications, monitor vital signs and titrate antihypertensives as needed.
[2020-06-09] MEDS ORDERED: Artificial Tear Sol 15 ML BOT EA EYE PRN (19:08)
[2020-06-09] MEDS: Melatonin 3 MG TAB PO SCH (21:48)
[2020-06-09] MEDS: guaiFENesin ER 600 MG TAB PO SCH (21:48)
[2020-06-09] MEDS: Divalproex Sodium 125 mg Sprinkle Capsule PO SCH (21:48)
[2020-06-09] MEDS: hydrOXYzine Pamoate 25 mg Capsule PO SCH (21:50)
[2020-06-10] MEDS: cefTRIAXone\\ROCEPHIN 1 GM in Sodium Chloride 0.9% 100 ML IVPB SCH (00:04)
[2020-06-10] MEDS: Albuterol Sulfate 2.5 mg/3 ml Neb NEB SCH ×7 (02:38→23:31)
[2020-06-10] MEDS: methylPREDNISolone Sod Succ 40 MG VIAL IVP SCH ×2 (04:14→10:05)
[2020-06-10 04:53] LABS: #Lymphocytes 0.9 thou/uL (1.20-3.40); #Monocytes 0.3 thou/uL (0.11-0.59); #Neutrophils 5.5 thou/uL (1.40-6.50); %Basophils 0.2 % (0.0-1.0); %Eosinophils 0.1 % (0.0-10.0); %Lymphocytes 14.1 % (21.0-51.0); %Neutrophils 81.7 % (42.0-75.0); Hemoglobin 14.1 g/dL (14.0-18.0); Mean Corpuscular HGB CONC 33.1 g/dL (32.0-36.0); Mean Corpuscular Hemoglobin 31.8 pg (27.0-31.0); Mean Corpuscular Volume 96.1 fL (78.0-98.0); Mean Platelet Volume 8.9 fL (7.4-10.4); Platelet Count 187 thou/uL (130-400); RBC Distribution Width 13.1 % (11.5-14.5); Red Blood Cell (RBC) Count 4.45 mill/uL (4.70-6.10); White Blood Cell (WBC) Count 6.7 thou/uL (4.8-10.8)
[2020-06-10 05:04] LABS: Anion Gap 14 mmol/L (10-20); BUN (Urea Nitrogen) 37 mg/dL (8.4-25.7); Calc. Creatinine Clearance 62 mL/min (70-130); Calcium 8.6 mg/dL (7.8-10.44); Carbon Dioxide 36 mmol/L (23-31); Chloride 92 mmol/L (98-107); Glucose 226 mg/dL (83-110); Potassium 3.7 mmol/L (3.5-5.1); Sodium 138 mmol/L (136-145)
[2020-06-10] MEDS: Furosemide 40 MG/4 ML VIAL SLOW IVP SCH ×2 (06:33→17:27)
[2020-06-10] MEDS: Mometasone 100 MCG/Formoterol 5 MCG 120 PUFF INHALER INH SCH ×2 (07:10→18:54)
[2020-06-10] MEDS ORDERED: FLU VACC QS2020-21(65YR UP)/PF 240 MCG/0.7 ML SYRINGE IM ONE (09:00)
[2020-06-10] MEDS ORDERED: Furosemide 40 MG TAB PO SCH (09:00)
[2020-06-10] MEDS: Cyanocobalamin (Vitamin B-12) 1,000 MCG TAB PO SCH (09:42)
[2020-06-10] MEDS: Divalproex Sodium 125 mg Sprinkle Capsule PO SCH ×2 (09:42→20:25)
[2020-06-10] MEDS: Aspirin Chewable 81 MG TAB PO SCH (09:42)
[2020-06-10] MEDS: Donepezil HCl 10 MG TAB PO SCH (09:44)
[2020-06-10] MEDS: FLUoxetine HCl 10 MG CAP PO SCH (09:44)
[2020-06-10] MEDS: risperiDONE 0.25 MG TAB PO SCH (09:44)
[2020-06-10] MEDS: guaiFENesin ER 600 MG TAB PO SCH ×2 (09:45→20:25)
[2020-06-10] MEDS: Enoxaparin Sodium 40 MG/0.4 ML SYRINGE SC SCH (09:45)
[2020-06-10] MEDS: hydrOXYzine Pamoate 25 mg Capsule PO SCH ×2 (09:45→20:25)
[2020-06-10] MEDS ORDERED: predniSONE 50 MG TAB PO SCH (15:00)
[2020-06-10 15:04] VITALS: BMI 29.8
--- NOTE | 2020-06-10 19:30 | PDOC.HOSPP ---
- Subjective Encounter Date: 06/10/20 Encounter Time: 10:30 Subjective: Patient seen for follow-up regarding COPD exacerbation. He is sleepy but arousable, denies any chest pain or shortness of breath. - Objective Vital Signs & Weight: Vital Signs (12 hours) Temp Pulse Resp BP Pulse Ox 06/10/20 18:52 74 16 98 06/10/20 15:14 98.2 F 87 21 H 104/54 L 94 L 06/10/20 10:10 80 18 06/10/20 08:20 94 L 06/10/20 08:18 98.4 F 75 18 119/58 L 94 L Weight Admit Weight 225 lb 1.471 oz Weight 196 lb 1.6 oz I&O: 06/09/20 06/10/20 06/11/20 06:59 06:59 06:59 Intake Total 716 Balance 716 Result Diagrams: 06/10/20 04:16 06/10/20 04:16 Additional Labs: Labs and MAR reviewed by me EKG Reviewed by me: Yes (Telemetry shows normal sinus rhythm) Hospitalist ROS - Review of Systems Respiratory: denies: cough, shortness of breath, SOB with excertion, pleuritic pain, wheezing Cardiovascular: denies: chest pain, palpitations, orthopnea, paroxysmal noc. dyspnea, edema, light headedness Gastrointestinal: denies: nausea, vomiting, abdominal pain, diarrhea, constipation, melena, hematochezia - Medication Medications: Active Medications Generic Name Dose Route Start Last Admin Trade Name Freq PRN Reason Stop Dose Admin Albuterol Sulfate 2.5 mg 06/09/20 02:30 06/10/20 18:52 Albuterol Sulfate 2.5 Mg/3 Ml Neb NEB 2.5 mg [id number] GUERRERO Administration Aspirin 81 mg 06/10/20 09:00 06/10/20 09:42 Aspirin Chewable 81 Mg Tab PO 81 mg DAILY GUERRERO Administration Cyanocobalamin 1,000 mcg 06/10/20 09:00 06/10/20 09:42 Cyanocobalamin (Vitamin B-12) 1,000 Mcg Tab PO 1,000 mcg DAILY GUERRERO Administration Divalproex Sodium 250 mg 06/09/20 21:00 06/10/20 09:42 Divalproex Sodium 125 Mg Sprinkle Capsule PO 250 mg BID GUERRERO Administration Donepezil HCl 10 mg 06/10/20 09:00 06/10/20 09:44 Donepezil Hcl 10 Mg Tab PO 10 mg DAILY GUERRERO Administration Enoxaparin Sodium 40 mg 06/09/20 09:00 06/10/20 09:45 Enoxaparin Sodium 40 Mg/0.4 Ml Syringe SC 40 mg 0900 GUERRERO Administration Fluoxetine HCl 10 mg 06/10/20 09:00 06/10/20 09:44 Fluoxetine Hcl 10 Mg Cap PO 10 mg DAILY GUERRERO Administration Guaifenesin 600 mg 06/09/20 21:00 06/10/20 09:45 Guaifenesin Er 600 Mg Tab PO 600 mg BID GUERRERO Administration Hydroxyzine Pamoate 25 mg 06/09/20 21:00 06/10/20 09:45 Hydroxyzine Pamoate 25 Mg Capsule PO 25 mg BID GUERRERO Administration Melatonin 6 mg 06/09/20 21:00 06/09/20 21:48 Melatonin 3 Mg Tab PO 6 mg HS GUERRERO Administration Memantine 10 mg 06/09/20 21:00 06/10/20 09:45 Memantine Hcl 10 Mg Tab PO 10 mg BID GUERRERO Administration Mometasone Furoate/Formoterol Fumar 2 puff 06/10/20 06:30 06/10/20 18:54 Mometasone 100 Mcg/Formoterol 5 Mcg 120 Puff Inhaler INH 2 puff BID-RT GUERRERO Administration Risperidone 0.5 mg 06/10/20 09:00 06/10/20 09:44 Risperidone 0.25 Mg Tab PO 0.5 mg DAILY GUERRERO Administration Sodium Chloride 10 ml 06/09/20 09:00 06/10/20 09:49 Flush - Normal Saline 10 Ml Syringe IVF 10 ml Q12HR GUERRERO Administration - Exam Eye: anicteric sclera ENT: moist mucosa Neck: supple Heart: RRR Respiratory: wheezes Gastrointestinal: soft, non-tender Skin: no rashes Musculoskeletal: no muscle wasting Psychiatric: normal affect Hosp A/P (1) COPD exacerbation Code(s): J44.1 - CHRONIC OBSTRUCTIVE PULMONARY DISEASE W (ACUTE) EXACERBATION Status: Acute (2) CHF exacerbation Code(s): I50.9 - HEART FAILURE, UNSPECIFIED Status: Acute (3) Dementia Code(s): F03.90 - UNSPECIFIED DEMENTIA WITHOUT BEHAVIORAL DISTURBANCE Status: Chronic (4) HTN (hypertension) Code(s): I10 - ESSENTIAL (PRIMARY) HYPERTENSION Status: Chronic - Plan Patient improved significantly. Discontinue IV antibiotics, start oral cefdinir. Discontinue IV furosemide, start oral furosemide. Discontinue IV Solu-Medrol, start prednisone. Continue Namenda and Aricept for dementia. Likely discharge in 24 to 48 hours.
[2020-06-10] MEDS: Cefdinir 300 MG CAP PO SCH (20:24)
[2020-06-10] MEDS: Melatonin 3 MG TAB PO SCH (20:25)
[2020-06-11] MEDS: Albuterol Sulfate 2.5 mg/3 ml Neb NEB SCH ×3 (02:01→11:49)
[2020-06-11 04:41] LABS: #Monocytes 0.3 thou/uL (0.11-0.59); #Neutrophils 5.5 thou/uL (1.40-6.50); %Basophils 0.1 % (0.0-1.0); %Lymphocytes 14.1 % (21.0-51.0); %Monocytes 4.8 % (0.0-10.0); Hemoglobin 13.8 g/dL (14.0-18.0); Mean Corpuscular HGB CONC 33.4 g/dL (32.0-36.0); Mean Corpuscular Volume 95.7 fL (78.0-98.0); Mean Platelet Volume 8.9 fL (7.4-10.4); Platelet Count 175 thou/uL (130-400); RBC Distribution Width 13.3 % (11.5-14.5); Red Blood Cell (RBC) Count 4.31 mill/uL (4.70-6.10); White Blood Cell (WBC) Count 6.8 thou/uL (4.8-10.8)
[2020-06-11 05:06] LABS: Anion Gap 14 mmol/L (10-20); BUN (Urea Nitrogen) 38 mg/dL (8.4-25.7); Calc. Creatinine Clearance 73 mL/min (70-130); Calcium 8.4 mg/dL (7.8-10.44); Carbon Dioxide 36 mmol/L (23-31); Chloride 93 mmol/L (98-107); Glucose 218 mg/dL (83-110); Potassium 3.9 mmol/L (3.5-5.1); Sodium 139 mmol/L (136-145)
[2020-06-11] MEDS: Mometasone 100 MCG/Formoterol 5 MCG 120 PUFF INHALER INH SCH (07:03)
[2020-06-11] MEDS ORDERED: predniSONE 50 MG TAB PO SCH (08:00)
[2020-06-11] MEDS: Divalproex Sodium 125 mg Sprinkle Capsule PO SCH (10:06)
[2020-06-11] MEDS: risperiDONE 0.25 MG TAB PO SCH (10:06)
[2020-06-11] MEDS: FLUoxetine HCl 10 MG CAP PO SCH ×2 (10:06→10:07)
[2020-06-11] MEDS: guaiFENesin ER 600 MG TAB PO SCH (10:07)
[2020-06-11] MEDS: Enoxaparin Sodium 40 MG/0.4 ML SYRINGE SC SCH (10:07)
[2020-06-11] MEDS: hydrOXYzine Pamoate 25 mg Capsule PO SCH (10:07)
[2020-06-11] MEDS: Aspirin Chewable 81 MG TAB PO SCH (10:07)
[2020-06-11] MEDS: Donepezil HCl 10 MG TAB PO SCH (10:07)
[2020-06-11] MEDS: Cefdinir 300 MG CAP PO SCH (10:07)
[2020-06-11] MEDS: Furosemide 40 MG TAB PO SCH ×2 (10:07→14:08)
[2020-06-11] MEDS: Cyanocobalamin (Vitamin B-12) 1,000 MCG TAB PO SCH (10:07)
[2020-06-11 11:02] VITALS: BP 143/64; TEMP 98.2
--- NOTE | 2020-06-11 13:24 | PDOC.DS.DS ---
Provider - Provider Date of Admission: 06/08/20 22:16 Date of Discharge: 06/11/20 Admitting Provider: Jose Angel Hebert MD Primary Care Physician: OUT OF TOWN Course - Hospital Course Hospital Course: Discharge diagnosis: 1. Acute on chronic hypoxic respiratory failure 2. COPD exacerbation 3. Acute on chronic diastolic congestive heart failure NYHA class III 4. Influenza test negative 5. COVID-19 PCR test negative Hospital course: Patient is a pleasant 80-year-old gentleman who was admitted to the hospital on June 08, 2020 for acute on chronic hypoxic respiratory failure. He was found to be in CHF exacerbation as well as COPD exacerbation. Improved with intravenous diuretics, oxygen, intravenous steroids, bronchodilators and intravenous antibiotics. He has been stepdown to oral antibiotics and oral steroids. He is being resumed on his oral diuretic as well. He is being discharged back to his long-term care facility in a stable condition. Many thanks for allowing me to participate in your patient's care. Please feel free to contact me with any questions or concerns. Discharge destination: Long-term care facility, from where patient was admitted to the hospital Total amount of time spent coordinating this discharge: 33 minutes - Labs Lab Results: 06/11/20 04:05 06/11/20 04:05 Abnormal Lab Results - Last 48 hrs 06/10/20 04:16: Chloride 92 L, Carbon Dioxide 36 H, BUN 37 H 06/10/20 04:16: RBC 4.45 L, MCH 31.8 H, Neutrophils % 81.7 H, Lymphocytes % 14.1 L, Lymphocytes # 0.9 L 06/11/20 04:05: Chloride 93 L, Carbon Dioxide 36 H, BUN 38 H 06/11/20 04:05: RBC 4.31 L, Hgb 13.8 L, Hct 41.3 L, MCH 32.0 H, Neutrophils % 81.0 H, Lymphocytes % 14.1 L, Lymphocytes # 1.0 L Microbiology - Entire Visit 06/08/20 20:31 Venous blood - Left Hand Blood Culture - Preliminary NO GROWTH AT 48 HOURS 06/08/20 20:31 Venous blood - Left Arm Blood Culture - Preliminary NO GROWTH AT 48 HOURS - Physical Exam Vitals: Vital Signs (12 hours) Temp Pulse Resp BP Pulse Ox 06/11/20 11:01 98.2 F 70 18 143/64 H 97 06/11/20 07:50 98.1 F 60 18 132/56 L 96 06/11/20 03:59 98.1 F 66 20 129/57 L 96 06/11/20 02:01 64 16 96 Weight Admit Weight 225 lb 1.471 oz Weight 198 lb 9.6 oz Physical Exam: The patient was seen and examined on the day of discharge. Patient denies chest pain or shortness of breath. Vital signs are stable. S1 and S2 are heard. Lungs are clear to auscultation bilaterally. Problem - Problem (1) COPD exacerbation Code(s): J44.1 - CHRONIC OBSTRUCTIVE PULMONARY DISEASE W (ACUTE) EXACERBATION Status: Acute (2) CHF exacerbation Code(s): I50.9 - HEART FAILURE, UNSPECIFIED Status: Acute (3) Dementia Code(s): F03.90 - UNSPECIFIED DEMENTIA WITHOUT BEHAVIORAL DISTURBANCE Status: Chronic (4) HTN (hypertension) Code(s): I10 - ESSENTIAL (PRIMARY) HYPERTENSION Status: Chronic Plan - Discharge Medications Prescriptions: predniSONE 20 mg PO ASDIR #16 tab Home Medications: Medication Instructions Recorded Confirmed Type Acetaminophen [Tylenol Extra 1,000 mg PO BID PRN 08/20/19 06/09/20 History Strength] Aspirin Chewable [Aspirin Chewable 1 tab PO DAILY 08/20/19 06/09/20 History Tablet] Cyanocobalamin (Vitamin B-12) 1 tab PO DAILY 08/20/19 06/09/20 History [Vitamin B-12] Dextran 70/Hypromellose 1 drop EA EYE Q6HR PRN 08/20/19 06/09/20 History [Artificial Tears Eye Drops] Divalproex Sodium [Depakote 2 capsule PO BID 08/20/19 06/09/20 History Sprinkle] Donepezil HCl [Aricept] 1 tab PO DAILY 08/20/19 06/09/20 History Fluticasone/Vilanterol [Breo 2 puff PO DAILY 08/20/19 06/09/20 History Ellipta] Furosemide [Lasix] 60 mg PO DAILY 08/20/19 06/09/20 History Melatonin/Pyridoxine [Melatonin 5 5 mg PO HS 08/20/19 06/09/20 History mg Tablet] Potassium Citrate [Potassium 20 meq PO DAILY 08/20/19 06/09/20 History Citrate ER] guaiFENesin [Mucinex] 600 mg PO BID 08/20/19 06/09/20 History FLUoxetine HCl [Prozac] 1 cap PO DAILY 05/08/20 06/09/20 History Memantine HCl [Namenda] 1 tab PO BID 05/08/20 06/09/20 History hydrOXYzine Pamoate [Vistaril] 1 cap PO BID 05/08/20 06/09/20 History risperiDONE [Risperdal] 1 tab PO DAILY 05/08/20 06/09/20 History ALButerol Sulfate [Ventolin Neb] 2.5 mg NEB Q6HR neb 06/11/20 Rx Cefdinir [Omnicef] 300 mg PO BID #14 cap 06/11/20 Rx predniSONE 20 mg PO ASDIR #16 tab 06/11/20 Rx Allergies: No Known Drug Allergies Allergy (Verified 05/08/20 07:52) - Follow up Plan Referrals: [facility] [Outside] (Current resident.) [facility]OUT OF [Primary Care Provider] - 3 Days (Please follow-up with 3 days.) Disposition: HOME Quality - Care Measures CORE MEASURES:: HF - Stroke/TIA Did you prescribe antithrombotic therapy?: Yes Did you prescribe anticoagulant for A Fib/Flutter?: No Specify reason for no DC anticoagulant: Treatment not indicated Did you prescribe a statin medication?: No Specify reason for no DC statin medication: Treatment not indicated
--- NOTE | 2020-06-14 10:49 | EKG ---
Test Reason : Blood Pressure : / mmHG Vent. Rate : 084 BPM Atrial Rate : 084 BPM P-R Int : 146 ms QRS Dur : 094 ms QT Int : 372 ms P-R-T Axes : -09 -20 130 degrees QTc Int : 439 ms Normal sinus rhythm Left ventricular hypertrophy with repolarization abnormality Cannot rule out Septal infarct , age undetermined Abnormal ECG Confirmed by JILLIAN HERMAN, GINNY Lozano ([id number]), graphic editor PETRA RAY ([id number]) on 06/14/2020 10:49:05 AM Referred By: Confirmed By:GINNY WALSH MD
== END 2020-06-11 14:54 | DRG 291 ==
LOC: ERS 19:40 → ERHOLD 22:16 → 2NO 06-09 16:41
PROVIDERS: ADMIT Emergency Medicine; ATTEND Internal Medicine
DX: I11.0 Hypertensive heart disease with heart failure (principal); G93.41 Metabolic encephalopathy; J96.21 Acute and chronic respiratory failure with hypoxia; J44.1 Chronic obstructive pulmonary disease with (acute) exacerbation; I50.33 Acute on chronic diastolic (congestive) heart failure; I42.9 Cardiomyopathy, unspecified; F41.9 Anxiety disorder, unspecified; I35.0 Nonrheumatic aortic (valve) stenosis; G47.00 Insomnia, unspecified; F03.90 Unspecified dementia, unspecified severity, without behavioral disturbance, psychotic disturbance, mood disturbance, and anxiety; H54.61 Unqualified visual loss, right eye, normal vision left eye; Z20.828 Contact with and (suspected) exposure to other viral communicable diseases; Z79.899 Other long term (current) drug therapy; Z79.01 Long term (current) use of anticoagulants; Z79.82 Long term (current) use of aspirin; Z79.51 Long term (current) use of inhaled steroids
CPT/HCPCS: 0240U; 36415; 70450; 71045; 80048; 80053; 81003; 82330; 82803; 83605; 83880; 84484; 85025; 87040; 93005; 94640; 94664; 96365; 96366; 96375; J0692; J0696; J1650; J1940; J1956; J2920; J2930; J3370; J3490; J7512; J7611; Q0177

== ENCOUNTER 2020-06-20 09:13 | Inpatient (IN) | payer MEDICARE, MEDICAID ==
[2020-06-20] MEDS ORDERED: Pantoprazole 40 MG VIAL ONE (09:44)
[2020-06-20] MEDS ORDERED: Dexamethasone 10 MG/ML VIAL ONE (09:44)
[2020-06-20 10:05] LABS: Mean Corpuscular HGB CONC 31.9 g/dL (32.0-36.0); Mean Corpuscular Hemoglobin 31.3 pg (27.0-31.0); Mean Corpuscular Volume 98.3 fL (78.0-98.0); RBC Distribution Width 13.6 % (11.5-14.5); Red Blood Cell (RBC) Count 3.52 mill/uL (4.70-6.10)
[2020-06-20 10:10] LABS: ALT (SGPT) 19 U/L (8-55); AST (SGOT) 10 U/L (5-34); Albumin 2.9 g/dL (3.4-4.8); Alkaline Phosphatase 72 U/L (40-110); Anion Gap 15 mmol/L (10-20); BUN (Urea Nitrogen) 67 mg/dL (8.4-25.7); Bilirubin, Total 0.3 mg/dL (0.2-1.2); Calc. Creatinine Clearance 0 mL/min (70-130); Calcium 7.5 mg/dL (7.8-10.44); Carbon Dioxide 29 mmol/L (23-31); Chloride 103 mmol/L (98-107); Globulin 1.8 g/dL (2.4-3.5); Glucose 374 mg/dL (83-110); PTT 27.6 sec (22.9-36.1); Potassium 5.6 mmol/L (3.5-5.1); Protein, Total 4.7 g/dL (5.8-8.1); Prothrombin Time 13.6 sec (12.0-14.7); Sodium 141 mmol/L (136-145)
[2020-06-20] MEDS ORDERED: Ondansetron PF 4 MG/2 ML Vial ONE (10:10)
[2020-06-20] MEDS ORDERED: Morphine 2 MG/ML VIAL ONE (10:10)
--- NOTE | 2020-06-20 10:17 | RAD ---
Exam: Chest one view HISTORY:Tachypnea. Comparison: 06/08/2020 FINDINGS: Cardiac silhouette:Accentuation of the right cardiomediastinal silhouette is felt to be due to leftwa rd rotation. Aorta: Atherosclerosis Pulmonary vessels: Normal Costophrenic angles: Clear LUNGS: Elevation the right hemidiaphragm which may represent right hemidiaphragmatic paralysis. Pneumothorax: None Osseous abnormalities: None Additional findings: Possible air-filled stomach. Consider 2 view abdomen radiograph. IMPRESSION: 1. Accentuation of the right cardiac mediastinal silhouette likely due to patient leftward rotation. Consider repeat portable radiograph with better patient positioning. 2. Possible gastric distention. Consider 2 view abdomen radiograph.
[2020-06-20 10:25] LABS: Band 1 % (5-11); Hypersemented Neutrophil SLIGHT; Lymphocytes 12 % (21-51); MDiff Complete? YES; Macrocytosis SLIGHT = 6-15 cells (100X) (0-5/hpf); Mean Platelet Volume 9.7 fL (7.4-10.4); Monocytes 14 % (0-10); Neutrophil 71 % (42-75); Platelet Count 230 thou/uL (130-400); Platelet Morphology Comment Appears Adequate; Polychromasia SLIGHT = 2-3 cells (100X) (0-2/hpf); Reactive Lymphocytes 2 % (0-10); White Blood Cell (WBC) Count 22.1 thou/uL (4.8-10.8)
[2020-06-20 10:31] LABS: CKMB 5.4 ng/mL (0-6.6)
--- NOTE | 2020-06-20 11:07 | RAD ---
Exam: 2 views abdomen COMPARISON: None Correlation: 1 view chest 06/20/2020 FINDINGS: There is significant gastric distention as well as distention of multiple small bowel loops . There does appear to be decompressed colon with scattered fecal material down to the level of rectum. No evidence of pneumoperitoneum on the left lateral decubitus radiograph. There is an air-flu id level in the stomach on the left lateral decubitus radiograph. IMPRESSION: Gastric distention with multiple prominent small bowel loops. Correlate for ileus versus developing small bowel obstruction. Abdomen pelvis CT with IV contrast may be beneficial. Oral contrast can be administered if the patient can tolerate oral contrast ingestion.
--- NOTE | 2020-06-20 12:21 | CT ---
CT OF THE ABDOMEN AND PELVIS WITH IV CONTRAST INDICATION: Bright red blood per rectum COMPARISON: CT PE examination dated May 07, 2020 FINDINGS: ABDOMEN: Lung bases: Right lower lobe pulmonary nodule is similar appearing. Bilateral interstitial and ground glass opacities persist. Liver: No focal lesion. Gallbladder: Normal appearing. Pancreas: Normal. Adrenal glands: Normal. Spleen: Normal. Kidneys and ureters: Normal. No hydronephrosis. Vasculature: There are severe vascular calcifications seen involving the visualized vasculature. Lymph nodes:No lymphadenopathy. Free fluid in abdomen:No free fluid is evident. PELVIS: Small and large bowel: There is a moderate amount of retained stool within the colon. Small bowel is normal in caliber. The stomach is moderately distended. Appendix:Normal Bladder: Partially decompressed Rectal and perirectal soft tissues:Normal. Reproductive structures: Normal. Free fluid in pelvis: No free fluid is evident. Lymphadenopathy pelvis: No lymphadenopathy is evident. Osseous structures: No acute osseous abnormality. No destructive osteolytic or osteoblastic lesion i s identified. There is scattered degenerative and osteoarthritic changes. Soft tissues:Normal. IMPRESSION: 1. Stable right lower lobe pulmonary nodule. Recommendation remains as per the CT PE examination date d May 07, 2020. 2. Moderate amount retained stool within the colon. 3. No definite acute abnormality seen within the abdomen or pelvis.
[2020-06-20] MEDS ORDERED: Fentanyl 100 MCG/2 ML VIAL ONE (12:57)
[2020-06-20] MEDS ORDERED: Dextrose 5% in Water 1,000 ML IV PRN (13:05)
[2020-06-20] MEDS ORDERED: Dextrose 50% Abboject 50 ML SYRINGE SLOW IVP PRN (13:05)
[2020-06-20] MEDS ORDERED: Artificial Tear Sol 15 ML BOT EA EYE PRN (13:07)
[2020-06-20] MEDS ORDERED: Sodium Chloride 0.9% 1,000 ML IV SCH (13:15)
[2020-06-20] MEDS ORDERED: Iopamidol-370 76% 500 ML 1 ML ONE (13:26)
[2020-06-20] MEDS ORDERED: Amiodarone 150 MG in Dextrose 5% in Water 100 ML IVPB SCH (13:45)
[2020-06-20] MEDS: Amiodarone 450 MG in Dextrose 5% in Water 250 ML IVPB SCH ×2 (14:04→23:28)
--- NOTE | 2020-06-20 14:14 | HP ---
HISTORY OF PRESENT ILLNESS: This is an 80-year-old male with past medical history of dementia, COPD, diastolic heart failure, hypertension, and severe aortic stenosis, not a candidate for surgical intervention per Cardiology. The patient is a senior living resident and was sent to the hospital after bright red blood was found in his briefs. In the ER, the patient was alert and oriented x1 and no accurate history could be obtained from him. He was hypotensive and tachycardic. His rhythm in the ER appears to be atrial fibrillation with rapid ventricular response, but at one point, he had 2-minute run of wide-complex tachycardia. The patient appears to be struggling to breathe and wheezing audibly. His hemoglobin level was found to be 11 compared to 14 two weeks ago. 2 units of blood were ordered and the patient was referred to us for further evaluation. REVIEW OF SYSTEMS: Unable to obtain due to altered mental status. PAST MEDICAL HISTORY: As noted above. SURGICAL HISTORY: Unremarkable. FAMILY HISTORY: Noncontributory in this case. PHYSICAL EXAMINATION: GENERAL: The patient is alert and oriented x1. He appears to be ill. HEENT: Head is normocephalic and atraumatic. Extraocular muscles are intact. He is using accessory muscles of respiration. CHEST: Auscultation reveals wheezing bilaterally. CARDIOVASCULAR: Examination reveals irregular rhythm with tachycardia. ABDOMEN: Soft, nontender, nondistended. NEUROLOGICAL: Limited as the patient is not cooperative, but he is able to move all of his extremities. PERTINENT LABORATORY FINDINGS: CBC revealed leukocytosis without bandemia. Hemoglobin was 11 and hematocrit level was 34. BMP revealed mild hyperkalemia with potassium of 5.6 and elevated BUN of 67. His creatinine level was 1.08. Glucose level was elevated at 374, and troponin level was slightly elevated at 0.058. CT scan of the abdomen and pelvis was performed, which showed right lower lobe stable pulmonary nodule and moderate amount of stool in the colon. Chest x-ray did not show any significant pulmonary edema. ASSESSMENT: 1. Cardiogenic shock. 2. Possible sepsis. 3. Atrial fibrillation with rapid ventricular response. 4. Ventricular tachycardia. 5. Severe aortic stenosis. 6. Hyperkalemia. 7. Anemia due to acute blood loss. 8. Gastrointestinal bleeding. 9. Elevated troponin due to demand ischemia. PLAN: The patient will be admitted to the intensive care unit. We will start him on IV amiodarone bolus and drip for his rapid atrial fibrillation associated with hypotension. The patient is receiving blood transfusion to help improve his hypotension in the setting of GI bleeding. Start Protonix 40 mg IV twice daily. Check another set of troponins. The patient's leukocytosis could be related to the corticosteroids that he was recently discharged on. However, since sepsis cannot be ruled out, I will start the patient on broad-spectrum antibiotics and check urinalysis and blood cultures. His stool occult blood is positive. However, since he is hemodynamically unstable, we will manage him with transfusion and Protonix for now. I will consult GI. Job ID: [id number]
[2020-06-20 14:17] LABS: SARS-CoV-2 NAA Rapid Test Not Detected (NotDetected)
[2020-06-20 14:55] VITALS: BMI 29.7
[2020-06-20] MEDS ORDERED: Vancomycin 1 GM in Premix Bag 1 BAG IVPB SCH (15:00)
[2020-06-20] MEDS: Ipratropium Bromide 2.5 ml Neb NEB SCH ×3 (15:15→22:03)
[2020-06-20] MEDS: Piperacillin/Tazobactam 3.375 GM in Sodium Chloride 0.9% 100 ML IVPB SCH ×2 (15:23→19:47)
[2020-06-20] MEDS: Vancomycin HCl 1.75 GM in Sodium Chloride 0.9% 500 ML IVPB SCH (16:38)
[2020-06-20] MEDS ORDERED: Carvedilol 6.25 MG TAB PO SCH (17:00)
--- NOTE | 2020-06-20 17:02 | CON ---
DATE OF CONSULTATION: HISTORY OF PRESENT ILLNESS: The patient is an unfortunate 80-year-old gentleman with a history of aortic stenosis and dementia, who presented to the emergency room with marked hypotension. The patient is unable to give any type of coherent history. The patient has a previous history of severe aortic stenosis. The patient was seen in July of this year. He underwent an echocardiogram, which revealed him to have a normal left ventricular ejection fraction 50% to 55%. There was moderate to severe aortic stenosis. The patient because of his poor health deemed to be not an appropriate patient for intervention for his aortic stenosis. The patient also had paroxysmal atrial fibrillation. The patient has been in the hospital several times recently. He was brought to the hospital after they found that he had bright red blood per rectum in his briefs. The patient is unable to give any type of history. He was markedly hypotensive. PAST MEDICAL HISTORY: 1. Atrial fibrillation. 2. Aortic stenosis. 3. COPD. 4. Dementia. PAST SURGICAL HISTORY: Surgery on his right leg. SOCIAL HISTORY: He lives in a care home. MEDICATIONS: See nursing list. PHYSICAL EXAMINATION: GENERAL: Disoriented gentleman who is anxious with a blood pressure of 101/78. NECK: Full. LUNGS: Coarse breath sounds bilateral. HEART: Regular rate and rhythm. Normal S1 and S2. 2/6 systolic murmur. ABDOMEN: Distended. EXTREMITIES: Show mild bilateral edema. LABORATORY DATA: White blood cell count 21.1, hemoglobin 11.0, hematocrit 34.6, platelets 230. Sodium is 141, potassium 5.6, chloride 103, bicarbonate 29, BUN 67. Troponin 1.0. Glucose 374. His troponin was 0.058. EKG atrial fibrillation with a rapid ventricular response and a marked ST-T wave abnormality. IMPRESSION: 1. Rapid atrial fibrillation. 2. Hypertension. 3. Severe aortic stenosis. 4. Possible GI bleed. 5. COPD. 6. Dementia. This gentleman presented with a rapid atrial fibrillation. He underwent electrical cardioversion. I recommended the patient be placed on IV amiodarone. From a cardiac standpoint, conservative care is recommended. Crritical care note. Time is 30 minutes. Job ID: [id number] MTDD
[2020-06-20] MEDS ORDERED: FLU VACC QS2020-21(65YR UP)/PF 240 MCG/0.7 ML SYRINGE IM ONE (17:15)
[2020-06-20 17:24] LABS: #Eosinphils 0.1 thou/uL (0.0-0.7); #Lymphocytes 0.8 thou/uL (1.20-3.40); #Monocytes 0.6 thou/uL (0.11-0.59); #Neutrophils 18.1 thou/uL (1.40-6.50); %Basophils 0.1 % (0.0-1.0); %Eosinophils 0.4 % (0.0-10.0); %Lymphocytes 4.1 % (21.0-51.0); %Monocytes 2.8 % (0.0-10.0); %Neutrophils 92.6 % (42.0-75.0); Hemoglobin 11.2 g/dL (14.0-18.0); Mean Corpuscular HGB CONC 33.1 g/dL (32.0-36.0); Mean Corpuscular Hemoglobin 32.2 pg (27.0-31.0); Mean Corpuscular Volume 97.3 fL (78.0-98.0); Mean Platelet Volume 9.6 fL (7.4-10.4); Platelet Count 171 thou/uL (130-400); RBC Distribution Width 13.6 % (11.5-14.5); Red Blood Cell (RBC) Count 3.46 mill/uL (4.70-6.10); White Blood Cell (WBC) Count 19.6 thou/uL (4.8-10.8)
[2020-06-20 17:47] LABS: Troponin I 0.203 ng/mL (< 0.028)
[2020-06-20 17:48] LABS: Anion Gap 16 mmol/L (10-20); BUN (Urea Nitrogen) 78 mg/dL (8.4-25.7); Calc. Creatinine Clearance 65 mL/min (70-130); Calcium 7.4 mg/dL (7.8-10.44); Carbon Dioxide 23 mmol/L (23-31); Chloride 107 mmol/L (98-107); Glucose 343 mg/dL (83-110); Potassium 5.9 mmol/L (3.5-5.1); Sodium 140 mmol/L (136-145)
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
[2020-06-20] MEDS: methylPREDNISolone Sod Succ 40 MG VIAL IVP SCH (19:49)
[2020-06-20] MEDS: Pantoprazole 40 MG VIAL IVP SCH (19:49)
[2020-06-20] MEDS: Divalproex Sodium 125 mg Sprinkle Capsule PO SCH (21:41)
[2020-06-20 23:06] LABS: Bacteria/HPF None Seen HPF (None Seen); Bilirubin Negative (Negative); Blood, Urine 1+ (Negative); Clarity Clear (Clear); Glucose, Urine (Dipstick) Greater than 1000 mg/dL (Negative); Ketone, Urine Negative (Negative); Leukocyte Negative Leu/uL (Negative); Nitrite Negative (Negative); Protein, Urine (Dipstick) 10 mg/dL (Neg-Trace); Renal Epithelial 0-3 HPF (None Seen); Specific Gravity, Urine 1.031 (1.002-1.036); Squamous Epithelial 0-3 HPF (0-3); Transitional Epithelial 0-3 HPF (None Seen); Urobilinogen Normal mg/dL (Less than 2); pH, Urine 5.5 (5.0-9.0)
[2020-06-20 23:10] LABS: Urine Culture Reflex Yes Yes
[2020-06-20 23:52] LABS: Hemoglobin 10.6 g/dL (14.0-18.0)
[2020-06-21] MEDS: Ipratropium Bromide 2.5 ml Neb NEB SCH ×6 (02:11→22:05)
[2020-06-21] MEDS: Piperacillin/Tazobactam 3.375 GM in Sodium Chloride 0.9% 100 ML IVPB SCH ×4 (02:22→22:20)
[2020-06-21 03:41] LABS: Band 10 % (5-11); Hemoglobin 10.2 g/dL (14.0-18.0); Lymphocytes 11 % (21-51); MDiff Complete? YES; Mean Corpuscular HGB CONC 33.4 g/dL (32.0-36.0); Mean Corpuscular Hemoglobin 32.2 pg (27.0-31.0); Mean Corpuscular Volume 96.4 fL (78.0-98.0); Monocytes 6 % (0-10); Neutrophil 73 % (42-75); Platelet Count 158 thou/uL (130-400); Platelet Morphology Comment Appears Adequate; RBC Distribution Width 13.8 % (11.5-14.5); Red Blood Cell (RBC) Count 3.15 mill/uL (4.70-6.10); White Blood Cell (WBC) Count 21.2 thou/uL (4.8-10.8)
[2020-06-21 03:57] LABS: Anion Gap 14 mmol/L (10-20); BUN (Urea Nitrogen) 59 mg/dL (8.4-25.7); Calc. Creatinine Clearance 74 mL/min (70-130); Calcium 7.8 mg/dL (7.8-10.44); Carbon Dioxide 26 mmol/L (23-31); Chloride 109 mmol/L (98-107); Glucose 254 mg/dL (83-110); Potassium 5.4 mmol/L (3.5-5.1); Sodium 144 mmol/L (136-145)
[2020-06-21] MEDS ORDERED: Donepezil HCl 10 MG TAB PO SCH (09:00)
[2020-06-21] MEDS: methylPREDNISolone Sod Succ 40 MG VIAL IVP SCH (09:06)
[2020-06-21] MEDS: Pantoprazole 40 MG VIAL IVP SCH ×2 (09:07→22:05)
[2020-06-21] MEDS: risperiDONE 0.25 MG TAB PO SCH (09:17)
[2020-06-21] MEDS: Divalproex Sodium 125 mg Sprinkle Capsule PO SCH ×2 (09:18→22:13)
--- NOTE | 2020-06-21 13:03 | PDOC.HOSPP ---
- Subjective Encounter Date: 06/21/20 Encounter Time: 10:00 Subjective: patient seen on f/u for possible sepsis atrial fibrillation gi bleeding and v tach. patient has dementia and rarely answer any questions - Objective Vital Signs & Weight: Vital Signs (12 hours) Temp Pulse Ox 06/21/20 08:00 96 06/21/20 07:00 97.7 F 06/21/20 05:00 98.1 F Weight Weight 211 lb Most Recent Monitor Data Heart Rate from ECG 94 NIBP 140/84 NIBP BP-Mean 102 Respiration from ECG 20 SpO2 96 I&O: 06/20/20 06/21/20 06/22/20 06:59 06:59 06:59 Intake Total 1043 220 Output Total 745 355 Balance 298 -135 Result Diagrams: 06/21/20 03:25 06/21/20 03:25 Additional Labs: Accuchecks 06/21/20 06/21/20 06/21/20 09:28 05:58 00:06 POC Glucose 191 H 204 H 230 H 06/20/20 18:46 POC Glucose 304 H Hospitalist ROS - Review of Systems ROS unobtainable: due to mental status - Medication Medications: Active Medications Generic Name Dose Route Start Last Admin Trade Name Freq PRN Reason Stop Dose Admin Divalproex Sodium 250 mg 06/20/20 21:00 06/21/20 09:18 Divalproex Sodium 125 Mg Sprinkle Capsule PO 250 mg BID GUERRERO Administration Piperacillin Sod/Tazobactam 100 mls @ 200 mls/hr 06/20/20 14:00 06/21/20 08:59 Sod 3.375 gm/ Sodium Chloride IVPB 100 mls 0200,0800,1400,2000 GUERRERO Administration Sodium Chloride 1,000 mls @ 0 mls/hr 06/20/20 13:15 06/20/20 16:38 Normal Saline 0.9% IV 1,000 mls .Q0M GUERRERO Administration KVO Amiodarone HCl 450 mg/ 259 mls @ 0 mls/hr 06/20/20 13:45 06/20/20 23:28 Dextrose/Water IVPB 259 mls INF GUERRERO Administration Protocol Per Protocol Vancomycin HCl 1.75 gm/ Sodium 500 mls @ 250 mls/hr 06/20/20 15:00 06/20/20 16:38 Chloride IVPB 500 mls 1500 GUERRERO Administration Ipratropium [place] 2.5 ml 06/20/20 14:30 06/21/20 12:43 Ipratropium [place] 2.5 Ml Neb NEB Not Given [id number] GUERRERO Methylprednisolone Sodium Succinate 40 mg 06/20/20 21:00 06/21/20 09:06 Methylprednisolone Sod Succ 40 Mg Vial IVP 40 mg Q12HR GUERRERO Administration Pantoprazole Sodium 40 mg 06/20/20 21:00 06/21/20 09:07 Pantoprazole 40 Mg Vial IVP 40 mg Q12HR GUERRERO Administration Risperidone 0.5 mg 06/21/20 09:00 06/21/20 09:17 Risperidone 0.25 Mg Tab PO 0.5 mg DAILY GUERRERO Administration Sodium Chloride 10 ml 06/20/20 21:00 06/21/20 09:18 Flush - Normal Saline 10 Ml Syringe IVF 10 ml Q12HR GUERRERO Administration - Exam General Appearance: NAD, awake alert Eye: PERRL, anicteric sclera ENT: normocephalic atraumatic, no oropharyngeal lesions Neck: supple, symmetric, no JVD Heart: RRR, no murmur, no gallops Respiratory: CTAB, no wheezes, no rales Gastrointestinal: soft, non-tender, non-distended Extremities: no cyanosis, no clubbing, no edema Skin: normal turgor, no lesions, no rashes Neurological: cranial nerve grossly intact Musculoskeletal: normal tone, no muscle wasting Psychiatric: normal affect, normal behavior Hosp A/P (1) Atrial fibrillation with rapid ventricular response Code(s): I48.91 - UNSPECIFIED ATRIAL FIBRILLATION Status: Acute (2) V tach Code(s): I47.2 - VENTRICULAR TACHYCARDIA Status: Acute (3) GI bleeding Code(s): K92.2 - GASTROINTESTINAL HEMORRHAGE, UNSPECIFIED Status: Acute (4) Dementia Code(s): F03.90 - UNSPECIFIED DEMENTIA WITHOUT BEHAVIORAL DISTURBANCE Status: Chronic (5) HTN (hypertension) Code(s): I10 - ESSENTIAL (PRIMARY) HYPERTENSION Status: Chronic - Plan atrial fibrillation with rvr - currently on amiodarone drip, tolerating well, on NSR with adequate blood pressure - cardiology consulted appreciate input - s/p cardioversion - continue with cardiac monitoring - unable to AC due to gi bleeding v tach - apparently had a sustain 2mins vtach episode at ED for which he was started on amio drip which he still has - as above gi bleeding - on ppis - gi consulted, recommended conservative management - if egd is require patient will likely need to be placed on MV - no further episodes of blood in the stool, some decreased in HG noted in labs, no need for tranfusion ryele copd -uses home 02 2l - prednisone at home, was switch to solumedrol due to some wheezing on physical exam possible sepsis - elevated wbc and tachycardia - unclear source, cxr clean, u/a clean preliminary cultures urine and blood negative - currently on vanc+ zosyn, d/c if infection is r/o
--- NOTE | 2020-06-21 14:27 | CON ---
DATE OF CONSULTATION: 06/21/2020 HISTORY OF PRESENT ILLNESS: Mr. Beard is an 80-year-old male who is admitted to the critical care unit. He apparently has do not resuscitate status. He has advanced dementia. He has had rectal bleeding and melena, predominantly, melena and transfused. PAST MEDICAL HISTORY: Remarkable for: 1. Heart failure with severe aortic stenosis. 2. Dementia. 3. Blindness. 4. COPD. 5. History of chronic hypoxemic respiratory failure, on home O2. 6. History of restless legs. 7. History of inability to care for himself, so he resides in a longterm at current. MEDICATIONS: Has been reviewed. FAMILY HISTORY: Negative for lung disease in early age. REVIEW OF SYSTEMS: Not reliably obtainable. PHYSICAL EXAMINATION: VITAL SIGNS: He is afebrile. Heart rate is in the 90s, blood pressure 140/84. GENERAL: He is very disheveled. NECK: Without lymphadenopathy. LUNGS: Remarkable for coarse and equal breath sounds. HEART: Regular rhythm. ABDOMEN: Soft. EXTREMITIES: Without asymmetry. LABORATORY DATA: White count 21, hemoglobin 10, platelets 158. Sodium 144, potassium 5.4, chloride 109, bicarb 26, BUN 59, creatinine 0.97. IMPRESSION: Advanced dementia with a history of cardiomyopathy, atrial fibrillation, aortic stenosis, and now recurrent gastrointestinal bleed. Supportive care is the best option. There are no family here. I do not feel it would be unreasonable not to transfuse him given the severity of his dementia, but this would have to be discussed with family; palliative care may be helpful with regard to this. There is no reason to keep him in the critical care unit since no critical care will be entertained. I have written transfer orders out to a regular bed. He can be transferred per the hospitalist's discretion. Discussions with the family should be entertained regarding hospice as transfusion will not improve his quality of life. TIME SPENT: 70-minute consult, 50% of the time was spent on the unit coordinating care. Job ID: [id number] MTDD
[2020-06-21] MEDS: Amiodarone 450 MG in Dextrose 5% in Water 250 ML IVPB SCH (14:52)
[2020-06-21] MEDS: Vancomycin HCl 1.75 GM in Sodium Chloride 0.9% 500 ML IVPB SCH (14:58)
[2020-06-21] MEDS: HumaLOG 300 UNITS/3 ML VIAL SC PRN (16:44)
--- NOTE | 2020-06-21 17:22 | PRG ---
DATE OF SERVICE: 06/21/2020 SUBJECTIVE: Mr. Beard remains in the ICU, is noncommunicative. He has a BiPAP face mask on. Nurses noted he had a 1 dark stool today, but no others. MEDICATIONS: 1. Amiodarone. 2. Depakote. 3. Insulin sliding scale. 4. Atrovent. 5. Protonix 40 IV q.12. 6. Zosyn. 7. Risperdal. 8. Normal saline. 9. KVO. 10. Vancomycin. LABORATORY DATA: White count 21,000, hemoglobin 10.2, platelet count 159. BUN and creatinine are 59 and 0.9 down from 78 and 1.1, glucose 254. ASSESSMENT: 1. Likely gastrointestinal bleed, stable. Continue IV PPI. 2. . 3. Atrial fibrillation with rapid ventricular response, controlled now. 4. Ventricular tachycardia, controlled now. 5. . 6. Chronic obstructive pulmonary disease, advanced. RECOMMENDATIONS: Continue medical management as the patient is a poor candidate for endoscopy and have to be intubated at the time of endoscopy. I agree with Dr. Mejia this patient should be have a DNR status and possibly even palliative care status. We will follow along with you. Job ID: [id number]
[2020-06-21] MEDS: Sodium Chloride 0.9% 1,000 ML IV SCH (17:45)
[2020-06-22] MEDS: Ipratropium Bromide 2.5 ml Neb NEB SCH ×6 (02:50→22:14)
[2020-06-22 04:56] LABS: Anion Gap 13 mmol/L (10-20); BUN (Urea Nitrogen) 35 mg/dL (8.4-25.7); Calc. Creatinine Clearance 83 mL/min (70-130); Calcium 7.9 mg/dL (7.8-10.44); Carbon Dioxide 28 mmol/L (23-31); Chloride 110 mmol/L (98-107); Glucose 166 mg/dL (83-110); Potassium 4.9 mmol/L (3.5-5.1); Sodium 146 mmol/L (136-145)
[2020-06-22] MEDS: Piperacillin/Tazobactam 3.375 GM in Sodium Chloride 0.9% 100 ML IVPB SCH ×4 (06:07→22:08)
[2020-06-22 07:00] LABS: Hemoglobin 8.4 g/dL (14.0-18.0); Hypochromia SLIGHT = 6-15 cells (100X) (0-5/hpf); Lymphocytes 15 % (21-51); MDiff Complete? YES; Mean Corpuscular HGB CONC 33.4 g/dL (32.0-36.0); Mean Corpuscular Hemoglobin 32.6 pg (27.0-31.0); Mean Corpuscular Volume 97.6 fL (78.0-98.0); Mean Platelet Volume 9.3 fL (7.4-10.4); Monocytes 9 % (0-10); Neutrophil 76 % (42-75); Platelet Count 128 thou/uL (130-400); Platelet Morphology Comment Appears Decreased; RBC Distribution Width 14.1 % (11.5-14.5); Red Blood Cell (RBC) Count 2.57 mill/uL (4.70-6.10); White Blood Cell (WBC) Count 8.8 thou/uL (4.8-10.8)
--- NOTE | 2020-06-22 08:28 | PDOC.HOSPP ---
- Subjective Encounter Date: 06/22/20 Encounter Time: 08:27 Subjective: Patient in bed, answers simple questions, denies chest pain/shortness of breath, denies any pain at all, slight retractions/increased work of breathing. charge nurse has been attempting to reach family, patient would be a hospice candidate - Objective Vital Signs & Weight: Vital Signs (12 hours) Temp Pulse Resp BP Pulse Ox 06/22/20 08:16 99 06/22/20 08:15 87 L 06/22/20 07:48 98.2 F 90 22 H 125/69 90 L 06/22/20 05:27 20 06/22/20 02:50 79 28 H 06/21/20 22:05 82 30 H 95 Weight Weight 211 lb Most Recent Monitor Data Heart Rate from ECG 78 NIBP 106/65 NIBP BP-Mean 78 Respiration from ECG 44 SpO2 94 I&O: 06/21/20 06/22/20 06/23/20 06:59 06:59 06:59 Intake Total 1043 814 Output Total 745 820 Balance 298 -6 Result Diagrams: 06/22/20 06:29 06/22/20 04:27 Additional Labs: Accuchecks 06/22/20 06/21/20 06/21/20 05:28 23:40 16:28 POC Glucose 157 H 181 H 192 H 06/21/20 09:28 POC Glucose 191 H Radiology Reviewed by me: Yes Hospitalist ROS - Medication Medications: Active Medications Generic Name Dose Route Start Last Admin Trade Name Freq PRN Reason Stop Dose Admin Divalproex Sodium 250 mg 06/20/20 21:00 06/21/20 22:13 Divalproex Sodium 125 Mg Sprinkle Capsule PO 250 mg BID GUERRERO Administration Piperacillin Sod/Tazobactam 100 mls @ 200 mls/hr 06/20/20 14:00 06/22/20 06:07 Sod 3.375 gm/ Sodium Chloride IVPB 100 mls 0200,0800,1400,2000 GUERRERO Administration Amiodarone HCl 450 mg/ 259 mls @ 0 mls/hr 06/20/20 13:45 06/21/20 14:52 Dextrose/Water IVPB 259 mls INF GUERRERO Administration Protocol Per Protocol Vancomycin HCl 1.75 gm/ Sodium 500 mls @ 250 mls/hr 06/20/20 15:00 06/21/20 14:58 Chloride IVPB 500 mls 1500 GUERRERO Administration Sodium Chloride 1,000 mls @ 70 mls/hr 06/21/20 17:15 06/21/20 17:45 Normal Saline 0.9% IV 1,000 mls .[id number] GUERRERO Administration Insulin Human Lispro 0 units 06/20/20 13:05 06/21/20 16:44 Humalog 300 Units/3 Ml Vial SC 3 unit .AGGRESSIVE SLIDING PRN Administration Aggressive Correctional Scale Ipratropium [place] 2.5 ml 06/20/20 14:30 06/22/20 05:27 Ipratropium [place] 2.5 Ml Neb NEB 2.5 ml [id number] GUERRERO Administration Pantoprazole Sodium 40 mg 06/20/20 21:00 06/21/20 22:05 Pantoprazole 40 Mg Vial IVP 40 mg Q12HR GUERRERO Administration Risperidone 0.5 mg 06/21/20 09:00 06/21/20 09:17 Risperidone 0.25 Mg Tab PO 0.5 mg DAILY GUERRERO Administration Sodium Chloride 10 ml 06/20/20 21:00 06/21/20 22:13 Flush - Normal Saline 10 Ml Syringe IVF 10 ml Q12HR GUERRERO Administration - Exam General Appearance: ill appearing Eye: PERRL, anicteric sclera ENT: normocephalic atraumatic, no oropharyngeal lesions, moist mucosa Neck: supple, symmetric, no JVD, no thyromegaly, no lymphadenopathy, no carotid bruit Heart: RRR, no murmur, no gallops, no rubs, normal peripheral pulses Respiratory: no tachypnea, wheezes Respiratory - other findings: increased work of breathing Gastrointestinal: soft, non-tender, non-distended, normal bowel sounds, no palpable masses, no hepatomegaly, no splenomegaly, no bruit Extremities: no cyanosis, no clubbing, no edema Skin: normal turgor, no lesions, no rashes Neurological: cranial nerve grossly intact, normal sensation to touch, no weakness, no focal deficits, no new deficit Musculoskeletal: generalized weakness, diffuse muscle atrophy Psychiatric: not oriented Hosp A/P - Plan Consults: Palliative Care atrial fibrillation with rvr - currently on amiodarone drip, tolerating well, on NSR with adequate blood pre ssure - cardiology consulted appreciate input - s/p cardioversion - continue with cardiac monitoring - unable to AC due to gi bleeding v tach - apparently had a sustain 2mins vtach episode at ED for which he was started on amio drip which he still has - as above - 06/22: telemetry discussed w/ monitoring and evaluation advisor, stable bundle branch block, no arrhtyhmia/alerts gi bleeding - on ppi - gi consulted, recommended conservative management - if egd is require patient will likely need to be placed on MV - no further episodes of blood in the stool, some decreased in HG noted in labs, no need for tranfusion rylee # copd w/ exacerbation # sepsis secondary to COPD exacerbation - wheezing and increased work of breathing on exam -uses home 02 2l - prednisone at home, was switch to solumedrol due to some wheezing on physical exam - deescalate to zosyn # hyperkalemia - resolved # hypernatremia - hold IVF and check CBC/BMP daily # thrombocytopenia - likely consumption due to GIB, monitor closely
[2020-06-22] MEDS ORDERED: Furosemide 40 MG/4 ML VIAL SLOW IVP SCH (08:45)
--- NOTE | 2020-06-22 09:01 | RAD ---
Chest AP view INDICATION: History of hypoxia COMPARISON: June 20, 2020 FINDINGS: Lungs: The lungs are clear Cardiac silhouette: Stable moderate cardiomegaly Pulmonary vasculature: Normal Pleural spaces: No pleural effusion or pneumothorax is demonstrated. Upper abdomen: No abnormality seen. Osseous structures: No acute osseous abnormality. Additional findings: None. IMPRESSION: Stable moderate cardiomegaly
[2020-06-22] MEDS: Divalproex Sodium 125 mg Sprinkle Capsule PO SCH ×2 (10:24→22:45)
[2020-06-22] MEDS: risperiDONE 0.25 MG TAB PO SCH (10:24)
[2020-06-22] MEDS: Pantoprazole 40 MG VIAL IVP SCH ×2 (10:28→22:26)
[2020-06-22] MEDS: Sodium Chloride 0.9% 1,000 ML IV SCH (11:08)
[2020-06-22] MEDS: HumaLOG 300 UNITS/3 ML VIAL SC PRN (12:47)
--- NOTE | 2020-06-22 12:51 | PRG ---
DATE OF SERVICE: 06/22/2020 SUBJECTIVE: Mr. Beard is out of the ICU. He is a little bit more awake, still quite gurgly in his speech. Nurses note no overt bleeding overnight, although his hemoglobin has decreased some. MEDICATIONS: 1. Protonix IV q.12. 2. Amiodarone. 3. Solu-Medrol. 4. Risperdal. OBJECTIVE: VITAL SIGNS: Pulse 88, respirations 28, O2 saturation 94% on 4 L, blood pressure 125/69. ABDOMEN: Protuberant, soft, and nondistended. LUNGS: Decreased breath sounds at bases. ASSESSMENT: 1. Severe chronic obstructive pulmonary disease. 2. Dementia. 3. Melena on admission with drop in hemoglobin, presently 8. 4. Atrial fibrillation with rapid ventricular response. 5. Ventricular tachycardia. RECOMMENDATIONS: Continue PPI. Advance diet as tolerated. Monitor H and H, transfuse as necessary until decision is made whether he is going to be on hospice. With his BUN dropping, I think his acute bleeding has resolved. Job ID: [id number]
[2020-06-22] MEDS: methylPREDNISolone Sod Succ/PF 125 MG/2 ML VIAL IVP SCH ×2 (14:36→22:37)
[2020-06-22] MEDS: Amiodarone 200 MG TAB PO SCH (22:45)
[2020-06-23] MEDS: HumaLOG 300 UNITS/3 ML VIAL SC PRN ×2 (00:19→18:09)
[2020-06-23] MEDS: Ipratropium Bromide 2.5 ml Neb NEB SCH ×6 (02:36→22:33)
[2020-06-23] MEDS: Piperacillin/Tazobactam 3.375 GM in Sodium Chloride 0.9% 100 ML IVPB SCH ×2 (02:52→09:26)
[2020-06-23] MEDS: methylPREDNISolone Sod Succ/PF 125 MG/2 ML VIAL IVP SCH (05:35)
[2020-06-23 06:41] LABS: #Lymphocytes 2.2 thou/uL (1.20-3.40); #Monocytes 0.4 thou/uL (0.11-0.59); #Neutrophils 8.8 thou/uL (1.40-6.50); %Basophils 0.1 % (0.0-1.0); %Eosinophils 0.3 % (0.0-10.0); %Lymphocytes 19.3 % (21.0-51.0); %Monocytes 3.6 % (0.0-10.0); %Neutrophils 76.8 % (42.0-75.0); Hemoglobin 7.9 g/dL (14.0-18.0); Mean Corpuscular HGB CONC 32.7 g/dL (32.0-36.0); Mean Corpuscular Hemoglobin 32.1 pg (27.0-31.0); Mean Corpuscular Volume 97.9 fL (78.0-98.0); Mean Platelet Volume 9.7 fL (7.4-10.4); Platelet Count 127 thou/uL (130-400); Red Blood Cell (RBC) Count 2.47 mill/uL (4.70-6.10); White Blood Cell (WBC) Count 11.4 thou/uL (4.8-10.8)
[2020-06-23 06:43] LABS: Anion Gap 10 mmol/L (10-20); BUN (Urea Nitrogen) 30 mg/dL (8.4-25.7); Calc. Creatinine Clearance 88 mL/min (70-130); Calcium 7.9 mg/dL (7.8-10.44); Carbon Dioxide 36 mmol/L (23-31); Chloride 102 mmol/L (98-107); Glucose 114 mg/dL (83-110); Potassium 4.1 mmol/L (3.5-5.1); Sodium 144 mmol/L (136-145)
[2020-06-23] MEDS: Amiodarone 200 MG TAB PO SCH ×2 (09:26→21:06)
[2020-06-23] MEDS: Divalproex Sodium 125 mg Sprinkle Capsule PO SCH ×2 (09:26→21:06)
[2020-06-23] MEDS: risperiDONE 0.25 MG TAB PO SCH (09:27)
--- NOTE | 2020-06-23 11:54 | PRG ---
DATE OF SERVICE: 06/23/2020 SUBJECTIVE: Mr. Beard is resting in bed. He is alert and oriented. He is without complaints. Nurse reports he has had no melena or bleeding. OBJECTIVE: VITAL SIGNS: Temperature is 97, pulse 62, blood pressure 137/82. ABDOMEN: Soft and nontender. LABORATORY DATA: Hemoglobin 7.9, white count 11.4, platelets 127. ASSESSMENT: 1. Severe chronic obstructive pulmonary disease. 2. Severe congestive heart failure. 3. Gastrointestinal bleed, now resolved. PLAN: 1. I felt with his respiratory and cardiac status, he was not a candidate for endoscopy. Without endoscopy, he did get better in the ICU. Ultimately, he was moved to the floor. Their are plans now to move towards more hospice care with his severe COPD and CHF and that is reasonable. 2. We would continue PPI therapy and we will continue that on discharge, that may help prolong his life. At this time, we will sign off. If I can be of any further assistance in his care, please do not hesitate to contact me. Job ID: [id number]
--- NOTE | 2020-06-23 12:14 | PQF ---
CLINICAL DOCUMENTATION CLARIFICATION FORM: Dear Dr. Magdy Childs Date: 06/23/20 Please exercise your independent, professional judgment in responding to the clarification form. Clinical indicators are provided on the bottom of this form for your review. Please check appropriate box(es): [ ] Acute On Chronic Respiratory Failure: [ ] with Hypoxia [ ] with Hypercapnia [ ] Chronic Respiratory Failure only: [ ] with Hypoxia [ ] with Hypercapnia [ ] Other diagnosis [ ] Unable to determine In addition, please specify: Present on Admission (POA): [ ] Yes [ ] No [ ] Unable to determine For continuity of documentation, please document condition throughout progress notes and discharge summary. Thank You. To be completed by CDI/Coding staff for physician review: CLINICAL INDICATORS - SIGNS / SYMPTOMS / LABS / RESULTS AND LOCATION IN MR ER Presentation 06/20: RA sat 92% >2L NC, 94% >3L NC 97%; RR: 21-25; HR 103- 118; ER MD - He normally is on 2L of 02 in the [place]. He has a PMH of COPD GI Consult 06/20: PMH - COPD, severe home oxygen requirement; PE - respiratory: 0xygen 100% on 3L; Assessment: 1) ...severe COPD, oxygen dependent. GI PN 06/21: ...He has a BIPAP face mask on; PN 06/22 - 02 sat 94% on 4L Attending PN 06/22 - Subjective: slight retractions/increased work of breathing; COPD w/exacerbation Vital sign 02 flow rate: 06/20 - 3L NC; 06/21 - BIPAP; 06/22 - 06/23: NC 2L - 6L RISK FACTORS / RESULTS AND LOCATION IN MR COPD w/02 dependency (H&P, 06/20) GI Bleed (H&P, 06/20) COPD Exacerbation (PN 06/22) TREATMENTS / RESULTS AND LOCATION IN MR Increase in 02 requirements (ER presentation 06/20) Blood transfusion 1U PRBC (06/20, LAB) BIPAP (06/21, GI PN) Pulmonary consult (06/21, EMR) Acute Respiratory Failure: ABG pH < 7.35 or > 7.45; Decreased oxygen saturation (<90% room air or < 95% on oxygen); PCO2 > 50 mm Hg; PO2 < 60 mm Hg; Labored or rapid respirations ARDS: Dx Criteria [[place] ARDS]: Respiratory symptoms within one week of a known clinical insult (e.g. shock, infection, surgery, trauma) Bilateral opacities in CXR/Chest CT not due to CHF or fluid THANK YOU! CDS Signature: Ariana Mejia RN, BSN Phone #: [phone]. [phone] Date: 06/23/20 This is a permanent part of the Medical Record [facility]
[2020-06-23] MEDS: Azithromycin 250 MG TAB PO SCH (13:12)
--- NOTE | 2020-06-23 13:32 | PDOC.HOSPP ---
- Subjective Encounter Date: 06/23/20 Encounter Time: 13:25 Subjective: patient in bed, awaiting hospice placement at facility, reports feeling somewhat better, no chest pain or shortness of breath. - Objective Vital Signs & Weight: Vital Signs (12 hours) Temp Pulse Resp BP Pulse Ox 06/23/20 11:56 97.4 F L 78 20 138/78 100 06/23/20 07:42 97.3 F L 62 16 137/82 98 06/23/20 07:34 95 06/23/20 07:33 59 L 24 H 95 06/23/20 04:26 97.3 F L 57 L 18 120/75 99 Weight Weight 210 lb 3.2 oz Most Recent Monitor Data Heart Rate from ECG 78 NIBP 106/65 NIBP BP-Mean 78 Respiration from ECG 44 SpO2 94 I&O: 06/22/20 06/23/20 06/24/20 06:59 06:59 06:59 Intake Total 814 1460 Output Total 820 2800 Balance -6 -1340 Result Diagrams: 06/23/20 06:01 06/23/20 06:01 Additional Labs: Accuchecks 06/23/20 06/22/20 06/22/20 05:55 23:47 18:00 POC Glucose 113 H 184 H 140 H Radiology Reviewed by me: Yes Hospitalist ROS - Medication Medications: Active Medications Generic Name Dose Route Start Last Admin Trade Name Freq PRN Reason Stop Dose Admin Amiodarone HCl 400 mg 06/22/20 21:00 06/23/20 09:26 Amiodarone 200 Mg Tab PO 400 mg BID GUERRERO Administration Azithromycin 500 mg 06/23/20 13:00 06/23/20 13:12 Azithromycin 250 Mg Tab PO 06/25/20 13:01 500 mg Q24HR GUERRERO Administration Divalproex Sodium 250 mg 06/20/20 21:00 06/23/20 09:26 Divalproex Sodium 125 Mg Sprinkle Capsule PO 250 mg BID GUERRERO Administration Amiodarone HCl 450 mg/ 259 mls @ 0 mls/hr 06/20/20 13:45 06/21/20 14:52 Dextrose/Water IVPB 259 mls INF GUERRERO Administration Protocol Per Protocol Insulin Human Lispro 0 units 06/20/20 13:05 06/23/20 00:19 Humalog 300 Units/3 Ml Vial SC 3 unit .AGGRESSIVE SLIDING PRN Administration Aggressive Correctional Scale Ipratropium [place] 2.5 ml 06/20/20 14:30 06/23/20 11:53 Ipratropium [place] 2.5 Ml Neb NEB Not Given [id number] GUERRERO Pantoprazole Sodium 40 mg 06/23/20 09:00 06/23/20 09:27 Pantoprazole 40 Mg Tab PO 40 mg BID GUERRERO Administration Risperidone 0.5 mg 06/21/20 09:00 06/23/20 09:27 Risperidone 0.25 Mg Tab PO 0.5 mg DAILY GUERRERO Administration Sodium Chloride 10 ml 06/20/20 21:00 06/23/20 09:27 Flush - Normal Saline 10 Ml Syringe IVF Not Given Q12HR GUERRERO - Exam General Appearance: NAD, ill appearing Eye: PERRL, anicteric sclera ENT: normocephalic atraumatic, no oropharyngeal lesions, moist mucosa Neck: supple, symmetric, no JVD, no thyromegaly, no lymphadenopathy, no carotid bruit Heart: RRR, no murmur, no gallops, no rubs, normal peripheral pulses Respiratory: CTAB, no wheezes, no rales, no ronchi, normal chest expansion, no tachypnea, normal percussion Gastrointestinal: soft, non-tender, non-distended, normal bowel sounds, no palpable masses, no hepatomegaly, no splenomegaly, no bruit Extremities: no cyanosis, no clubbing, no edema Skin: normal turgor, no lesions, no rashes Neurological: cranial nerve grossly intact, normal sensation to touch, no weakness, no focal deficits, no new deficit Musculoskeletal: normal tone, normal strength, generalized weakness, diffuse muscle atrophy Psychiatric: normal affect, oriented to person, oriented to place Hosp A/P (1) Atrial fibrillation with rapid ventricular response Code(s): I48.91 - UNSPECIFIED ATRIAL FIBRILLATION Status: Acute (2) GI bleeding Code(s): K92.2 - GASTROINTESTINAL HEMORRHAGE, UNSPECIFIED Status: Acute (3) (HFpEF) heart failure with preserved ejection fraction Code(s): I50.30 - UNSPECIFIED DIASTOLIC (CONGESTIVE) HEART FAILURE Status: Acute (4) Acute and chronic respiratory failure with hypoxia Code(s): J96.21 - ACUTE AND CHRONIC RESPIRATORY FAILURE WITH HYPOXIA Status: Acute (5) COPD (chronic obstructive pulmonary disease) Status: Acute (6) COPD exacerbation Code(s): J44.1 - CHRONIC OBSTRUCTIVE PULMONARY DISEASE W (ACUTE) EXACERBATION Status: Acute (7) Dementia Code(s): F03.90 - UNSPECIFIED DEMENTIA WITHOUT BEHAVIORAL DISTURBANCE Status: Chronic (8) HTN (hypertension) Code(s): I10 - ESSENTIAL (PRIMARY) HYPERTENSION Status: Chronic - Plan atrial fibrillation with rvr - currently on amiodarone PO - cardiology consulted appreciate input - s/p cardioversion - continue with cardiac monitoring - unable to AC due to gi bleeding v tach - apparently had a sustain 2mins vtach episode at ED for which he was started on amio drip which he still has - as above - on po amiodarone gi bleeding - on ppi - gi consulted, recommended conservative management - if egd is require patient will likely need to be placed on MV - no further episodes of blood in the stool, some decreased in HG noted in labs, no need for tranfusion rylee # copd w/ exacerbation # sepsis secondary to COPD exacerbation - wheezing and increased work of breathing on exam - uses home 02 2l - prednisone at home, was switch to solumedrol due to some wheezing on physical exam - deescalate to PO azithromycin and PO prednisone in hopes of d/c soon # hyperkalemia - resolved # hypernatremia - hold IVF and check CBC/BMP daily # thrombocytopenia - likely consumption due to GIB, monitor closely Disposition: hospice being arranged, plan for d/c to facility in near future once accepted and set up, appreciate case management assistance with this.
--- NOTE | 2020-06-23 15:13 | EKG ---
Test Reason : Blood Pressure : / mmHG Vent. Rate : 110 BPM Atrial Rate : 110 BPM P-R Int : 150 ms QRS Dur : 104 ms QT Int : 348 ms P-R-T Axes : 069 -13 114 degrees QTc Int : 470 ms Sinus tachycardia Abnormal ECG Confirmed by CARMEN HERMAN, SReinaldo ([id number]) on 06/23/2020 3:12:30 PM Referred By: INDRA Confirmed By:DR. Spike MORALES MD
[2020-06-23] MEDS ORDERED: Melatonin 3 MG TAB PO PRN (21:23)
[2020-06-23] MEDS: Acetaminophen 325 MG TAB PO PRN (21:39)
[2020-06-24] MEDS: Ipratropium Bromide 2.5 ml Neb NEB SCH ×5 (02:03→18:29)
[2020-06-24] MEDS: Acetaminophen 325 MG TAB PO PRN (05:58)
[2020-06-24] MEDS: HumaLOG 300 UNITS/3 ML VIAL SC PRN ×2 (05:59→15:45)
[2020-06-24 06:11] LABS: #Eosinphils 0.1 thou/uL (0.0-0.7); #Monocytes 0.5 thou/uL (0.11-0.59); #Neutrophils 5.6 thou/uL (1.40-6.50); %Basophils 0.2 % (0.0-1.0); %Eosinophils 0.7 % (0.0-10.0); %Lymphocytes 24.7 % (21.0-51.0); %Monocytes 6.1 % (0.0-10.0); %Neutrophils 68.3 % (42.0-75.0); Hemoglobin 8.3 g/dL (14.0-18.0); Mean Corpuscular HGB CONC 32.9 g/dL (32.0-36.0); Mean Corpuscular Hemoglobin 31.9 pg (27.0-31.0); Mean Corpuscular Volume 96.8 fL (78.0-98.0); Mean Platelet Volume 9.4 fL (7.4-10.4); Platelet Count 129 thou/uL (130-400); RBC Distribution Width 14.1 % (11.5-14.5); White Blood Cell (WBC) Count 8.3 thou/uL (4.8-10.8)
[2020-06-24 06:29] LABS: Anion Gap 14 mmol/L (10-20); BUN (Urea Nitrogen) 22 mg/dL (8.4-25.7); Calc. Creatinine Clearance 90 mL/min (70-130); Calcium 7.5 mg/dL (7.8-10.44); Carbon Dioxide 30 mmol/L (23-31); Chloride 101 mmol/L (98-107); Glucose 232 mg/dL (83-110); Magnesium 1.9 mg/dL (1.6-2.6); Potassium 3.7 mmol/L (3.5-5.1); Sodium 141 mmol/L (136-145)
[2020-06-24] MEDS: predniSONE 20 MG TAB PO SCH (09:06)
[2020-06-24] MEDS: Divalproex Sodium 125 mg Sprinkle Capsule PO SCH ×2 (09:07→20:48)
[2020-06-24] MEDS: risperiDONE 0.25 MG TAB PO SCH (09:08)
[2020-06-24] MEDS: Amiodarone 200 MG TAB PO SCH ×2 (09:12→20:48)
[2020-06-24] MEDS: Azithromycin 250 MG TAB PO SCH (13:18)
--- NOTE | 2020-06-24 21:31 | PDOC.HOSPP ---
- Subjective Encounter Date: 06/24/20 Encounter Time: 15:10 Subjective: patient in bed, feels a bit better, no chest pain or shortness of breath - Objective Vital Signs & Weight: Vital Signs (12 hours) Temp Pulse Resp BP Pulse Ox 06/24/20 20:20 97.7 F 81 20 141/70 H 87 L 06/24/20 18:29 77 28 H 95 06/24/20 14:55 97.9 F 77 24 H 138/76 98 06/24/20 10:45 97.8 F 80 22 H 119/74 98 06/24/20 10:14 85 28 H Weight Weight 210 lb 3.2 oz Most Recent Monitor Data Heart Rate from ECG 78 NIBP 106/65 NIBP BP-Mean 78 Respiration from ECG 44 SpO2 94 I&O: 06/23/20 06/24/20 06/25/20 06:59 06:59 06:59 Intake Total 1460 1560 Output Total 2800 800 Balance -1340 760 Result Diagrams: 06/24/20 05:51 06/24/20 05:51 Additional Labs: Accuchecks 06/24/20 06/24/20 15:32 05:18 POC Glucose 231 H 221 H Radiology Reviewed by me: Yes Hospitalist ROS - Medication Medications: Active Medications Generic Name Dose Route Start Last Admin Trade Name Freq PRN Reason Stop Dose Admin Acetaminophen 650 mg 06/23/20 21:23 06/24/20 05:58 Acetaminophen 325 Mg Tab PO 650 mg Q4H PRN Administration Headache/Fever or Pain Amiodarone HCl 400 mg 06/22/20 21:00 06/24/20 20:48 Amiodarone 200 Mg Tab PO 400 mg BID GUERRERO Administration Azithromycin 500 mg 06/23/20 13:00 06/24/20 13:18 Azithromycin 250 Mg Tab PO 06/25/20 13:01 500 mg Q24HR GUERRERO Administration Divalproex Sodium 250 mg 06/20/20 21:00 06/24/20 20:48 Divalproex Sodium 125 Mg Sprinkle Capsule PO 250 mg BID GUERRERO Administration Insulin Human Lispro 0 units 06/20/20 13:05 06/24/20 15:45 Humalog 300 Units/3 Ml Vial SC 6 unit .AGGRESSIVE SLIDING PRN Administration Aggressive Correctional Scale Ipratropium [place] 2.5 ml 06/20/20 14:30 06/24/20 18:29 Ipratropium [place] 2.5 Ml Neb NEB 2.5 ml [id number] GUERRERO Administration Melatonin 3 mg 06/23/20 21:23 06/23/20 21:39 Melatonin 3 Mg Tab PO 3 mg HS PRN Administration Insomnia Pantoprazole Sodium 40 mg 06/23/20 09:00 06/24/20 20:48 Pantoprazole 40 Mg Tab PO 40 mg BID GUERRERO Administration Prednisone 40 mg 06/24/20 08:00 06/24/20 09:06 Prednisone 20 Mg Tab PO 40 mg QAM-WM GUERRERO Administration Risperidone 0.5 mg 06/21/20 09:00 06/24/20 09:08 Risperidone 0.25 Mg Tab PO 0.5 mg DAILY GUERRERO Administration Sodium Chloride 10 ml 06/20/20 21:00 06/24/20 20:49 Flush - Normal Saline 10 Ml Syringe IVF Not Given Q12HR GUERRERO - Exam General Appearance: NAD, awake alert Eye: PERRL, anicteric sclera ENT: normocephalic atraumatic, no oropharyngeal lesions, moist mucosa Neck: supple, symmetric, no JVD, no thyromegaly, no lymphadenopathy, no carotid bruit Heart: RRR, no murmur, no gallops, no rubs, normal peripheral pulses Respiratory: CTAB, no wheezes, no rales, no ronchi, normal chest expansion, no tachypnea, normal percussion Gastrointestinal: soft, non-tender, non-distended, normal bowel sounds, no palp able masses, no hepatomegaly, no splenomegaly, no bruit Extremities: no cyanosis, no clubbing, no edema Skin: normal turgor, no lesions, no rashes Neurological: cranial nerve grossly intact, normal sensation to touch, no weak ness, no focal deficits, no new deficit Musculoskeletal: normal tone, normal strength, no muscle wasting Psychiatric: normal affect, normal behavior, A&O x 3 Hosp A/P (1) Atrial fibrillation with rapid ventricular response Code(s): I48.91 - UNSPECIFIED ATRIAL FIBRILLATION Status: Acute (2) GI bleeding Code(s): K92.2 - GASTROINTESTINAL HEMORRHAGE, UNSPECIFIED Status: Acute (3) (HFpEF) heart failure with preserved ejection fraction Code(s): I50.30 - UNSPECIFIED DIASTOLIC (CONGESTIVE) HEART FAILURE Status: Acute (4) Acute and chronic respiratory failure with hypoxia Code(s): J96.21 - ACUTE AND CHRONIC RESPIRATORY FAILURE WITH HYPOXIA Status: Acute (5) COPD (chronic obstructive pulmonary disease) Status: Acute (6) COPD exacerbation Code(s): J44.1 - CHRONIC OBSTRUCTIVE PULMONARY DISEASE W (ACUTE) EXACERBATION Status: Acute (7) Dementia Code(s): F03.90 - UNSPECIFIED DEMENTIA WITHOUT BEHAVIORAL DISTURBANCE Status: Chronic (8) HTN (hypertension) Code(s): I10 - ESSENTIAL (PRIMARY) HYPERTENSION Status: Chronic - Plan atrial fibrillation with rvr - currently on amiodarone PO - cardiology consulted appreciate input - s/p cardioversion - continue with cardiac monitoring - unable to AC due to gi bleeding v tach - apparently had a sustain 2mins vtach episode at ED for which he was started on amio drip which he still has - as above - on po amiodarone gi bleeding - on ppi - gi consulted, recommended conservative management - no further episodes of blood in the stool, some decreased in HG noted in labs, no need for tranfusion rylee # copd w/ exacerbation # sepsis secondary to COPD exacerbation - wheezing and increased work of breathing on exam - uses home 02 2l - prednisone at home, was switch to solumedrol due to some wheezing on physical exam - deescalate to PO azithromycin and PO prednisone in hopes of d/c soon # hyperkalemia - resolved # hypernatremia - hold IVF and check CBC/BMP daily # thrombocytopenia - likely consumption due to GIB, monitor closely Disposition: hospice being arranged, plan for d/c to facility in near future once accepted and set up, appreciate case management assistance with this.
[2020-06-25] MEDS: Ipratropium Bromide 2.5 ml Neb NEB SCH ×3 (00:01→07:24)
[2020-06-25] MEDS: HumaLOG 300 UNITS/3 ML VIAL SC PRN (06:11)
[2020-06-25 06:52] LABS: #Basophils 0.1 thou/uL (0.0-0.2); #Eosinphils 0.1 thou/uL (0.0-0.7); #Lymphocytes 1.8 thou/uL (1.20-3.40); #Monocytes 0.4 thou/uL (0.11-0.59); #Neutrophils 5.2 thou/uL (1.40-6.50); %Basophils 0.7 % (0.0-1.0); %Eosinophils 0.8 % (0.0-10.0); %Lymphocytes 23.5 % (21.0-51.0); %Monocytes 5.8 % (0.0-10.0); %Neutrophils 69.2 % (42.0-75.0); Hemoglobin 8.1 g/dL (14.0-18.0); Mean Corpuscular HGB CONC 32.4 g/dL (32.0-36.0); Mean Corpuscular Hemoglobin 31.9 pg (27.0-31.0); Mean Corpuscular Volume 98.4 fL (78.0-98.0); Mean Platelet Volume 9.2 fL (7.4-10.4); Platelet Count 127 thou/uL (130-400); RBC Distribution Width 14.7 % (11.5-14.5); Red Blood Cell (RBC) Count 2.54 mill/uL (4.70-6.10); White Blood Cell (WBC) Count 7.5 thou/uL (4.8-10.8)
[2020-06-25 07:11] LABS: Anion Gap 8 mmol/L (10-20); BUN (Urea Nitrogen) 17 mg/dL (8.4-25.7); Calc. Creatinine Clearance 105 mL/min (70-130); Calcium 7.9 mg/dL (7.8-10.44); Carbon Dioxide 34 mmol/L (23-31); Chloride 103 mmol/L (98-107); Glucose 185 mg/dL (83-110); Potassium 4.2 mmol/L (3.5-5.1); Sodium 141 mmol/L (136-145)
[2020-06-25] MEDS: predniSONE 20 MG TAB PO SCH (07:46)
[2020-06-25] MEDS: Divalproex Sodium 125 mg Sprinkle Capsule PO SCH (07:46)
[2020-06-25] MEDS: Amiodarone 200 MG TAB PO SCH (07:47)
[2020-06-25] MEDS: risperiDONE 0.25 MG TAB PO SCH (07:48)
[2020-06-25 08:16] VITALS: BP 119/70; TEMP 98.4
--- NOTE | 2020-06-25 08:19 | PDOC.DS.DS ---
Provider - Provider Date of Admission: 06/20/20 13:00 Admitting Provider: Elena Abrams MD Primary Care Physician: OUT OF [facility] Course - Hospital Course Resuscitation Status: 06/20/20 13:55 Resuscitation Status Routine Resuscitation Status: DNAR: NO Resuscitation Discussed with: OUT OF HOSPITAL DNR - Labs Lab Results: 06/25/20 06:41 06/25/20 06:41 Abnormal Lab Results - Last 48 hrs 06/20/20 09:35: Crossmatch See Detail 06/24/20 05:51: Calcium 7.5 L 06/24/20 05:51: RBC 2.60 L, Hgb 8.3 L, Hct 25.2 L, MCH 31.9 H, Plt Count 129 L 06/25/20 06:41: Carbon Dioxide 34 H, Anion Gap 8 L 06/25/20 06:41: RBC 2.54 L, Hgb 8.1 L, Hct 24.9 L, MCV 98.4 H, MCH 31.9 H, RDW 14.7 H, Plt Count 127 L Microbiology - Entire Visit 06/20/20 23:10 Urine julian catheter Urine Culture - Final NO GROWTH AT 36 HOURS 06/20/20 11:17 Venous blood - Left Hand Blood Culture - Preliminary NO GROWTH AT 48 HOURS 06/20/20 11:17 Venous blood - Right Hand Blood Culture - Preliminary NO GROWTH AT 48 HOURS 06/20/20 09:20 Stool - Pending Stool Culture - Final Pseudomonas aeruginosa 06/20/20 09:20 Stool - Pending Campylobacter Antigen Assay - Final 06/20/20 09:20 Stool - Pending Shiga Toxin Test - Final 06/20/20 09:20 Stool - Pending C. difficile GDH Antigen & Toxins - Final 06/20/20 09:20 Stool - Pending - Final - Physical Exam Vitals: Vital Signs (12 hours) Temp Pulse Resp BP Pulse Ox 06/25/20 08:15 98.4 F 67 20 119/70 100 06/25/20 04:04 98.8 F 77 18 111/55 L 85 L 06/25/20 00:05 73 24 H 06/24/20 23:40 98.6 F 65 20 130/84 99 06/24/20 21:20 18 98 06/24/20 20:20 97.7 F 81 20 141/70 H 87 L Weight Weight 210 lb 3.019 oz Most Recent Monitor Data Heart Rate from ECG 78 NIBP 106/65 NIBP BP-Mean 78 Respiration from ECG 44 SpO2 94 Physical Exam: The patient was seen and examined on the day of discharge. Problem - Problem (1) Atrial fibrillation with rapid ventricular response Code(s): I48.91 - UNSPECIFIED ATRIAL FIBRILLATION Status: Acute (2) GI bleeding Code(s): K92.2 - GASTROINTESTINAL HEMORRHAGE, UNSPECIFIED Status: Acute (3) (HFpEF) heart failure with preserved ejection fraction Code(s): I50.30 - UNSPECIFIED DIASTOLIC (CONGESTIVE) HEART FAILURE Status: Acute (4) Acute and chronic respiratory failure with hypoxia Code(s): J96.21 - ACUTE AND CHRONIC RESPIRATORY FAILURE WITH HYPOXIA Status: Acute (5) COPD (chronic obstructive pulmonary disease) Status: Acute (6) COPD exacerbation Code(s): J44.1 - CHRONIC OBSTRUCTIVE PULMONARY DISEASE W (ACUTE) EXACERBATION Status: Acute (7) Dementia Code(s): F03.90 - UNSPECIFIED DEMENTIA WITHOUT BEHAVIORAL DISTURBANCE Status: Chronic (8) HTN (hypertension) Code(s): I10 - ESSENTIAL (PRIMARY) HYPERTENSION Status: Chronic Plan - Discharge Medications Home Medications: Medication Instructions Recorded Confirmed Type Acetaminophen [Tylenol Extra 1,000 mg PO BID PRN 08/20/19 06/09/20 History Strength] Cyanocobalamin (Vitamin B-12) 1 tab PO DAILY 08/20/19 06/09/20 History [Vitamin B-12] Dextran 70/Hypromellose 1 drop EA EYE Q6HR PRN 08/20/19 06/09/20 History [Artificial Tears Eye Drops] Divalproex Sodium [Depakote 2 capsule PO BID 08/20/19 06/09/20 History Sprinkle] Donepezil HCl [Aricept] 1 tab PO DAILY 08/20/19 06/09/20 History Fluticasone/Vilanterol [Breo 2 puff PO DAILY 08/20/19 06/09/20 History Ellipta] Furosemide [Lasix] 60 mg PO DAILY 08/20/19 06/09/20 History Melatonin/Pyridoxine [Melatonin 5 5 mg PO HS 08/20/19 06/09/20 History mg Tablet] guaiFENesin [Mucinex] 600 mg PO BID 08/20/19 06/09/20 History FLUoxetine HCl [Prozac] 1 cap PO DAILY 05/08/20 06/09/20 History Memantine HCl [Namenda] 1 tab PO BID 05/08/20 06/09/20 History risperiDONE [Risperdal] 1 tab PO DAILY 05/08/20 06/09/20 History ALButerol Sulfate [Ventolin Neb] 2.5 mg NEB Q6HR PRN #0 neb 06/25/20 Rx Amiodarone [Cordarone] 400 mg PO BID tab 06/25/20 Rx Azithromycin [Zithromax] 500 mg PO Q24HR tab 06/25/20 Rx HumaLOG [HumaLOG Vial] 0 units SC .AGGRESSIVE SLIDING 06/25/20 Rx PRN vial Ipratropium [place] [Atrovent] 2.5 ml NEB [id number] neb 06/25/20 Rx Pantoprazole [Protonix] 40 mg PO BID tab 06/25/20 Rx predniSONE 40 mg PO QAM-WM 3 Days tab 06/25/20 Rx Allergies: No Known Drug Allergies Allergy (Verified 05/08/20 07:52) - Discharge Instructions Activity:: Activity as Tolerated Nourishment:: Diabetic Diet Therapies:: Occupational Therapy, Physical Therapy, Speech Therapy, Wound Care Additional Therapy Instructions:: as needed, hospice services to evaluate on arrival to facility Additional Equipment / Supplies Instructions:: per therapy recommendations - Follow up Plan Referrals: [facility] PHYSICIAN,OUT OF [Primary Care Provider] - Disposition: HOSPICE MEDICAL FACILITY
== END 2020-06-25 08:45 | disposition hospice, inpatient (51) | DRG 871 ==
LOC: ERS 09:13 → CCU 13:00 → 2NO 06-21 18:53 → SURG B 06-22 19:19
PROVIDERS: ADMIT Internal Medicine; ATTEND Internal Medicine
DX: A41.9 Sepsis, unspecified organism (principal); R57.0 Cardiogenic shock; J96.21 Acute and chronic respiratory failure with hypoxia; K92.2 Gastrointestinal hemorrhage, unspecified; I42.9 Cardiomyopathy, unspecified; I24.8 Other forms of acute ischemic heart disease; D62 Acute posthemorrhagic anemia; I47.2 Ventricular tachycardia; E87.0 Hyperosmolality and hypernatremia; J44.1 Chronic obstructive pulmonary disease with (acute) exacerbation; I50.32 Chronic diastolic (congestive) heart failure; G47.00 Insomnia, unspecified; I48.0 Paroxysmal atrial fibrillation; Z66 Do not resuscitate; G25.81 Restless legs syndrome; J44.9 Chronic obstructive pulmonary disease, unspecified; H54.61 Unqualified visual loss, right eye, normal vision left eye; R77.8 Other specified abnormalities of plasma proteins; I11.0 Hypertensive heart disease with heart failure; E87.5 Hyperkalemia; I35.0 Nonrheumatic aortic (valve) stenosis; Z79.899 Other long term (current) drug therapy; Z79.82 Long term (current) use of aspirin; Z79.51 Long term (current) use of inhaled steroids; Z99.81 Dependence on supplemental oxygen; D69.6 Thrombocytopenia, unspecified; Z51.5 Encounter for palliative care; Z20.828 Contact with and (suspected) exposure to other viral communicable diseases
CPT/HCPCS: 0240U; 36415; 36416; 36430; 71045; 74019; 74177; 80048; 80053; 81001; 82010; 82270; 82553; 83605; 83690; 83735; 84484; 85025; 85610; 85730; 86850; 86900; 86901; 87040; 87045; 87046; 87077; 87086; 87324; 87427; 87449; 87635; 93005; 93010; 94664; 96361; 96374; 96375; C9113; J0282; J1100; J1940; J2270; J2405; J2543; J2920; J2930; J3010; J3370; J3490; J7030; J7070; J7512; P9016; Q9967; U0003